=== PATIENT | female | born 1995 | race Caucasian/White ===

== ENCOUNTER 2019-11-28 11:58 | Inpatient (IN) | payer OTHER ==
--- NOTE | 2019-11-28 12:11 | EDM.PDOC ---
ED HPI GENERAL MEDICAL PROBLEM - General Chief Complaint: Fever Stated Complaint: BROUGHT DIRECTLY FROM THE CLINIC Time Seen by Provider: 11/28/19 12:10 Source of Information: Reports: [employer] - History of Present Illness INITIAL COMMENTS - FREE TEXT/NARRATIVE: Patient awake but confused, and unable to provide any history. Patient was brought to the emergency department in a wheelchair accompanied by the adapted physical education specialist. Deicer Tester states that patient's told her earlier today that the patient had been complaining of a headache off and on for about a week. She has had a fever for about 3 days. It is unknown whether the patient got Tylenol or Motrin at home. Patient attempted to go to the clinic today, but was not verbally responsive, so the clinic sent her here. Joya Garrison, adapted physical education specialist, assisted with obtaining history from the patient' s . He says that she has had a headache recently. She is also complaining of pain in her back and legs. No recent antibiotics. No other hx available. Generalized Pain Score (Numeric/FACES): 8 - Related Data Allergies Allergy/AdvReac Type Severity Reaction Status Date / Time No Known Allergies Allergy Verified 07/11/16 12:08 Home Meds: Home Meds . [No Known Home Meds] 08/18/16 [History] Past Medical History - Past Health History Medical/Surgical History: Denies Medical/Surgical History HEENT History: Reports: None Cardiovascular History: Reports: None Respiratory History: Reports: Asthma Gastrointestinal History: Reports: None Genitourinary History: Reports: None DENTAL DIRECTOR History: Reports: None Musculoskeletal History: Reports: None Neurological History: Reports: None Psychiatric History: Reports: None Endocrine/Metabolic History: Reports: None Hematologic History: Reports: None Immunologic History: Reports: None Oncologic (Cancer) History: Reports: None Dermatologic History: Reports: None - Infectious Disease History Infectious Disease History: Reports: Chicken Pox - Past Surgical History Head Surgeries/Procedures: Reports: None HEENT Surgical History: Reports: None Cardiovascular Surgical History: Reports: None Respiratory Surgical History: Reports: None GI Surgical History: Reports: None Female Surgical History: Reports: None Dermatological Surgical History: Reports: None Social & Family History - Family History Family Medical History: Unobtainable - Tobacco Use Smoking Status *Q: Never Smoker - Caffeine Use Caffeine Use: Reports: None - Recreational Drug Use Recreational Drug Use: No ED ROS GENERAL - Review of Systems Review Of Systems: Unable To Obtain Reason Not Obtained: Due to mental status, patient cannot provide review of systems. ED EXAM, SEPSIS - Physical Exam Exam: See Below Text/Narrative:: General: tired appearing, mumbles a few words here and there, not very interactive, nondiaphoretic HEENT: Atraumatic, normocephalic, PERRL 2 mm bilat sluggish. negative for conjunctival pallor or scleral icterus, mucous membranes dry, handling oral secretions well. Neck: supple, no meningismus. FROM. Lungs: Clear to auscultation, breath sounds equal bilaterally, chest nontender. Heart: S1S2, regular, negative for clicks, rubs, or JVD. Abdomen: Soft, nondistended, nontender. Negative for masses or hepatosplenomegaly. Negative for costovertebral tenderness. Pelvis: Stable nontender. Skin: warm, dry. Lacy reticular rash on face, back, trunk. No petechiae. Musculoskeletal: soft compartments. Extremities: Atraumatic, negative for cords or calf pain. Neurovascular unremarkable. Neuro: awake, mumbles at times, localizes pain, eyes open spontaneously. Not following commands. Good muscle tone. Cranial nerves II through XII unremarkable. Moves each extremity. Exam Limited By: Altered Mental Status General Appearance: Other (Lethargic, not verbally responsive, stairs. Attempts to speak at times, but very few words come out.) Course - Vital Signs Text/Narrative:: After pt examined initially, there was some concern about her altered mental status. LP considered. Benefits and risks of the lumbar puncture discussed via the adapted physical education specialist. Patient's was given an opportunity to ask all questions. After benefits and risks were explained, he did agree to consent to the procedure. Initial plan: labs and a head CT; if there is no concerning finding on the head CT, will seriously consider a lumbar puncture. NKDA, per of pt. 1:20pm Due to simultaneous presence of a STEMI pt who coded three times, I could not do the LP prior to giving abxs. Abxs ( 20 mg/kg of vanc to toal 1500 mg vanc and 2 grams Rocephin ) ordered to cover presumptive sepsis and meningitis. Also, pt hasnt gotten her head CT yet. 1:53pm Pt has now gone for head CT. 2:33pm Pt more awake and alert. Oriented x 3. Says has pain in back, head. Supple neck. Says she does not want the LP; not quite able to explain why, only says she does not want it. Pt is more alert compared to initial presentation, but I am concerned that she speaks barely above a whisper and does not look well. Have requested page of the hospitalist. 2:47pm d/w medicine resident, who accepts case for Dr. Cotto (attending). Pt s at bedside. Via buckle strap drum operator, informed of admission; he and pt are in agreement with admission. Subsequent to return from head CT, pt noted to be more interactive. However, mentation still seemed to be a bit slow. Pt declined LP. Pt + for influenza. Due to mentation not being quite normal, decision made to admit to obs. Case d/ w hospitalist [facility] [place], [place], who accepted pt. Last Recorded V/S: Last Vital Signs Temp 97.7 F 11/28/19 19:32 Pulse 86 11/28/19 19:32 Resp 16 11/28/19 19:32 BP 115/61 11/28/19 19:32 Pulse Ox 96 11/28/19 19:32 - Orders/Labs/Meds Orders: Active Orders 24 hr Category Date Time Status CULTURE BLOOD [BC] Stat Lab 11/28/19 12:00 Received CULTURE BLOOD [BC] Stat Lab 11/28/19 12:20 Received CULTURE URINE [] Stat Lab 11/28/19 13:51 Received Sodium Chloride 0.9% [Saline Flush] Med 11/28/19 12:14 Active 10 ml FLUSH ASDIRECTED PRN Sodium Chloride 0.9% [Saline Flush] Med 11/28/19 12:14 Active 2.5 ml FLUSH ASDIRECTED PRN Blood Culture x2 Reflex Set [OM.PC] Stat Oth 11/28/19 12:14 Ordered Saline Lock Insert [OM.PC] Stat Oth 11/28/19 12:14 Ordered Severe Sepsis Onset Time [OM.PC] Stat Oth 11/28/19 12:14 Ordered Medication Orders Acetaminophen (Tylenol) 650 mg PO Q4H PRN PRN Reason: Pain (Mild 1-3)/fever Albuterol (Proventil Neb Soln) 2.5 mg NEB Q2H PRN PRN Reason: Shortness Of Breath/wheezing Benzocaine/Menthol (Cepacol Sore Throat) 1 lozenge MUCMEM Q2H PRN PRN Reason: Sore Throat Diphenhydramine HCl (Benadryl) 25 mg IVPUSH Q6H PRN PRN Reason: Itching Sodium Chloride (Normal Saline) 1,000 mls @ 150 mls/hr IV Q6H [facility] Last Admin: 11/28/19 16:27 Dose: 150 mls/hr Azithromycin 500 mg/ Sodium (Chloride) 250 mls @ 250 mls/hr IV DAILY [facility] Last Admin: 11/28/19 16:37 Dose: 250 mls/hr Ceftriaxone Sodium/Dextrose 1 (gm/ Premix) 50 mls @ 100 mls/hr IV Q24H [facility] Ibuprofen (Motrin) 400 mg PO Q6H PRN PRN Reason: Pain (mild 1-3) Morphine Sulfate (Morphine) 2 mg IVPUSH Q2H PRN PRN Reason: Pain (severe 7-10) Stop: 11/29/19 15:40 Last Admin: 11/28/19 17:03 Dose: 2 mg Ondansetron HCl (Zofran) 4 mg IVPUSH Q4H PRN PRN Reason: Nausea Last Admin: 11/28/19 17:05 Dose: 4 mg Oseltamivir Phosphate (Tamiflu) 75 mg PO BID [facility] Last Admin: 11/28/19 21:05 Dose: 75 mg Sodium Chloride (Saline Flush) 10 ml FLUSH ASDIRECTED PRN PRN Reason: Keep Vein Open Last Admin: 11/28/19 12:28 Dose: 10 ml Sodium Chloride (Saline Flush) 2.5 ml FLUSH ASDIRECTED PRN PRN Reason: Keep Vein Open Last Admin: 11/28/19 12:28 Dose: 2.5 ml Labs: Laboratory Tests 11/28/19 11/28/19 11/28/19 Range/Units 12:00 12:00 12:00 WBC 5.00 (4.0-11.0) K/uL RBC 4.51 (4.30-5.90) M/uL Hgb 13.7 (12.0-16.0) g/dL Hct 41.1 (36.0-46.0) % MCV 91.1 (80.0-98.0) fL MCH 30.4 (27.0-32.0) pg MCHC 33.3 (31.0-37.0) g/dL RDW Std Deviation 43.3 (28.0-62.0) fl RDW Coeff of Heather 13 (11.0-15.0) % Plt Count 192 (150-400) K/uL MPV 9.90 (7.40-12.00) fL Add Manual Diff YES Neutrophils % (Manual) 55 (48.0-80.0) % Band Neutrophils % 2 % Lymphocytes % (Manual) 27 (16.0-40.0) % Monocytes % (Manual) 16 H (0.0-15.0) % Nucleated RBC % 0.0 /100WBC Absolute Seg Neuts 2.8 (1.4-5.7) Band Neutrophils # 0.1 Lymphocytes # (Manual) 1.4 (0.6-2.4) Monocytes # (Manual) 0.8 (0.0-0.8) Nucleated RBCs # 0 K/uL INR 1.03 ABG pH (7.35-7.45) ABG pCO2 (35-45) mmHG ABG pO2 (75-100) mmHG ABG HCO3 (22-26) mEq/L ABG Total CO2 ABG Base Excess (-2.0-2.0) Lactate 0.8 (0.20-2.00) mmol/L Sodium (136-145) mmol/L Potassium (3.5-5.1) mmol/L Chloride (98-107) mmol/L Carbon Dioxide (21.0-32.0) mmol/L BUN (7.0-18.0) mg/dL Creatinine (0.6-1.0) mg/dL Est Cr Clr Drug Dosing mL/min Estimated GFR (MDRD) ml/min Glucose (74-106) mg/dL Calcium (8.5-10.1) mg/dL Total Bilirubin (0.2-1.0) mg/dL AST (15-37) IU/L ALT (14-63) IU/L Alkaline Phosphatase (46-116) U/L Creatine Kinase (26-308) U/L C-Reactive Protein (0.00-0.90) mg/dL Total Protein (6.4-8.2) g/dL Albumin (3.4-5.0) g/dL Globulin (2.6-4.0) g/dL Albumin/Globulin Ratio (0.9-1.6) Lipase (73-393) U/L Urine Color Urine Appearance Urine pH (5.0-8.0) Ur Specific Carpio (1.001-1.035) Urine Protein (NEGATIVE) mg/dL Urine Glucose (UA) (NEGATIVE) mg/dL Urine Ketones (NEGATIVE) mg/dL Urine Occult Blood (NEGATIVE) Urine Nitrite (NEGATIVE) Urine Bilirubin (NEGATIVE) Urine Urobilinogen (<2.0) EU/dL Ur Leukocyte Esterase (NEGATIVE) Urine RBC (0-2/HPF) Urine WBC (0-5/HPF) Ur Epithelial Cells (NONE-FEW) Urine Bacteria (NEGATIVE) Urine HCG, Qual (NEGATIVE) Urine Opiates Screen (NEGATIVE) Ur Oxycodone Screen (NEGATIVE) Urine Methadone Screen (NEGATIVE) Ur Barbiturates Screen (NEGATIVE) Ur Phencyclidine Scrn (NEGATIVE) Ur Amphetamine Screen (NEGATIVE) U Methamphetamines Scrn (NEGATIVE) U Benzodiazepines Scrn (NEGATIVE) U Cocaine Metab Screen (NEGATIVE) U Marijuana (THC) Screen (NEGATIVE) 11/28/19 11/28/19 11/28/19 Range/Units 12:00 12:00 12:32 WBC (4.0-11.0) K/uL RBC (4.30-5.90) M/uL Hgb (12.0-16.0) g/dL Hct (36.0-46.0) % MCV (80.0-98.0) fL MCH (27.0-32.0) pg MCHC (31.0-37.0) g/dL RDW Std Deviation (28.0-62.0) fl RDW Coeff of Heather (11.0-15.0) % Plt Count (150-400) K/uL MPV (7.40-12.00) fL Add Manual Diff Neutrophils % (Manual) (48.0-80.0) % Band Neutrophils % % Lymphocytes % (Manual) (16.0-40.0) % Monocytes % (Manual) (0.0-15.0) % Nucleated RBC % /100WBC Absolute Seg Neuts (1.4-5.7) Band Neutrophils # Lymphocytes # (Manual) (0.6-2.4) Monocytes # (Manual) (0.0-0.8) Nucleated RBCs # K/uL INR ABG pH 7.404 (7.35-7.45) ABG pCO2 38 (35-45) mmHG ABG pO2 67 L (75-100) mmHG ABG HCO3 23 (22-26) mEq/L ABG Total CO2 21.2 ABG Base Excess -1.1 (-2.0-2.0) Lactate (0.20-2.00) mmol/L Sodium 140 (136-145) mmol/L Potassium 3.9 (3.5-5.1) mmol/L Chloride 104 (98-107) mmol/L Carbon Dioxide 26.2 (21.0-32.0) mmol/L BUN 7 (7.0-18.0) mg/dL Creatinine 0.6 (0.6-1.0) mg/dL Est Cr Clr Drug Dosing 128.98 mL/min Estimated GFR (MDRD) > 60.0 ml/min Glucose 100 (74-106) mg/dL Calcium 9.2 (8.5-10.1) mg/dL Total Bilirubin 0.2 (0.2-1.0) mg/dL AST 19 (15-37) IU/L ALT 22 (14-63) IU/L Alkaline Phosphatase 62 (46-116) U/L Creatine Kinase 68 (26-308) U/L C-Reactive Protein 0.70 (0.00-0.90) mg/dL Total Protein 8.3 H (6.4-8.2) g/dL Albumin 4.3 (3.4-5.0) g/dL Globulin 4.0 (2.6-4.0) g/dL Albumin/Globulin Ratio 1.1 (0.9-1.6) Lipase 95 (73-393) U/L Urine Color Urine Appearance Urine pH (5.0-8.0) Ur Specific Carpio (1.001-1.035) Urine Protein (NEGATIVE) mg/dL Urine Glucose (UA) (NEGATIVE) mg/dL Urine Ketones (NEGATIVE) mg/dL Urine Occult Blood (NEGATIVE) Urine Nitrite (NEGATIVE) Urine Bilirubin (NEGATIVE) Urine Urobilinogen (<2.0) EU/dL Ur Leukocyte Esterase (NEGATIVE) Urine RBC (0-2/HPF) Urine WBC (0-5/HPF) Ur Epithelial Cells (NONE-FEW) Urine Bacteria (NEGATIVE) Urine HCG, Qual (NEGATIVE) Urine Opiates Screen (NEGATIVE) Ur Oxycodone Screen (NEGATIVE) Urine Methadone Screen (NEGATIVE) Ur Barbiturates Screen (NEGATIVE) Ur Phencyclidine Scrn (NEGATIVE) Ur Amphetamine Screen (NEGATIVE) U Methamphetamines Scrn (NEGATIVE) U Benzodiazepines Scrn (NEGATIVE) U Cocaine Metab Screen (NEGATIVE) U Marijuana (THC) Screen (NEGATIVE) 11/28/19 11/28/19 11/28/19 Range/Units 13:51 13:51 13:51 WBC (4.0-11.0) K/uL RBC (4.30-5.90) M/uL Hgb (12.0-16.0) g/dL Hct (36.0-46.0) % MCV (80.0-98.0) fL MCH (27.0-32.0) pg MCHC (31.0-37.0) g/dL RDW Std Deviation (28.0-62.0) fl RDW Coeff of Heather (11.0-15.0) % Plt Count (150-400) K/uL MPV (7.40-12.00) fL Add Manual Diff Neutrophils % (Manual) (48.0-80.0) % Band Neutrophils % % Lymphocytes % (Manual) (16.0-40.0) % Monocytes % (Manual) (0.0-15.0) % Nucleated RBC % /100WBC Absolute Seg Neuts (1.4-5.7) Band Neutrophils # Lymphocytes # (Manual) (0.6-2.4) Monocytes # (Manual) (0.0-0.8) Nucleated RBCs # K/uL INR ABG pH (7.35-7.45) ABG pCO2 (35-45) mmHG ABG pO2 (75-100) mmHG ABG HCO3 (22-26) mEq/L ABG Total CO2 ABG Base Excess (-2.0-2.0) Lactate (0.20-2.00) mmol/L Sodium (136-145) mmol/L Potassium (3.5-5.1) mmol/L Chloride (98-107) mmol/L Carbon Dioxide (21.0-32.0) mmol/L BUN (7.0-18.0) mg/dL Creatinine (0.6-1.0) mg/dL Est Cr Clr Drug Dosing mL/min Estimated GFR (MDRD) ml/min Glucose (74-106) mg/dL Calcium (8.5-10.1) mg/dL Total Bilirubin (0.2-1.0) mg/dL AST (15-37) IU/L ALT (14-63) IU/L Alkaline Phosphatase (46-116) U/L Creatine Kinase (26-308) U/L C-Reactive Protein (0.00-0.90) mg/dL Total Protein (6.4-8.2) g/dL Albumin (3.4-5.0) g/dL Globulin (2.6-4.0) g/dL Albumin/Globulin Ratio (0.9-1.6) Lipase (73-393) U/L Urine Color YELLOW Urine Appearance CLEAR Urine pH 7.0 (5.0-8.0) Ur Specific Carpio 1.020 (1.001-1.035) Urine Protein NEGATIVE (NEGATIVE) mg/dL Urine Glucose (UA) NEGATIVE (NEGATIVE) mg/dL Urine Ketones NEGATIVE (NEGATIVE) mg/dL Urine Occult Blood MODERATE H (NEGATIVE) Urine Nitrite NEGATIVE (NEGATIVE) Urine Bilirubin NEGATIVE (NEGATIVE) Urine Urobilinogen 0.2 (<2.0) EU/dL Ur Leukocyte Esterase NEGATIVE (NEGATIVE) Urine RBC 6-8 (0-2/HPF) Urine WBC NONE SEEN (0-5/HPF) Ur Epithelial Cells RARE (NONE-FEW) Urine Bacteria FEW (NEGATIVE) Urine HCG, Qual NEGATIVE (NEGATIVE) Urine Opiates Screen NEGATIVE (NEGATIVE) Ur Oxycodone Screen NEGATIVE (NEGATIVE) Urine Methadone Screen NEGATIVE (NEGATIVE) Ur Barbiturates Screen NEGATIVE (NEGATIVE) Ur Phencyclidine Scrn NEGATIVE (NEGATIVE) Ur Amphetamine Screen NEGATIVE (NEGATIVE) U Methamphetamines Scrn NEGATIVE (NEGATIVE) U Benzodiazepines Scrn NEGATIVE (NEGATIVE) U Cocaine Metab Screen NEGATIVE (NEGATIVE) U Marijuana (THC) Screen NEGATIVE (NEGATIVE) ABG: nl pH; p)c low (67), otherwise unremarkable Crp: nl Cbc: nl INR: nl Cmp: Coags: Lactate: 0.8 (nl) Lipase: 95 (nl) Ua: neg nit, LE, moderate blood Ucg: neg Influenza B: positive Meds: Medications Generic Name Dose Route Start Last Admin Trade Name Antione PRN Reason Stop Dose Admin Acetaminophen 650 mg 11/28/19 15:39 Tylenol PO Q4H PRN Pain (Mild 1-3)/fever Albuterol 2.5 mg 11/28/19 15:39 Proventil Neb Soln NEB Q2H PRN Shortness Of Breath/wheezing Benzocaine/Menthol 1 lozenge 11/28/19 15:39 Cepacol Sore Throat MUCMEM Q2H PRN Sore Throat Diphenhydramine HCl 25 mg 11/28/19 16:14 Benadryl IVPUSH Q6H PRN Itching Sodium Chloride 1,000 mls @ 150 mls/hr 11/28/19 15:45 11/28/19 16:27 Normal Saline IV 150 mls/hr Q6H KELLY Administration Azithromycin 500 mg/ Sodium 250 mls @ 250 mls/hr 11/28/19 16:00 11/28/19 16: 37 Chloride IV 250 mls/hr DAILY KELLY Administration Ceftriaxone Sodium/Dextrose 1 50 mls @ 100 mls/hr 11/29/19 12:00 gm/ Premix IV Q24H KELLY Ibuprofen 400 mg 11/28/19 15:39 Motrin PO Q6H PRN Pain (mild 1-3) Morphine Sulfate 2 mg 11/28/19 15:39 11/28/19 17:03 Morphine IVPUSH 11/29/19 15:40 2 mg Q2H PRN Administration Pain (severe 7-10) Ondansetron HCl 4 mg 11/28/19 15:39 11/28/19 17:05 Zofran IVPUSH 4 mg Q4H PRN Administration Nausea Oseltamivir Phosphate 75 mg 11/28/19 21:00 11/28/19 21:05 Tamiflu PO 75 mg BID KELLY Administration Sodium Chloride 10 ml 11/28/19 12:14 11/28/19 12:28 Saline Flush FLUSH 10 ml ASDIRECTED PRN Administration Keep Vein Open Sodium Chloride 2.5 ml 11/28/19 12:14 11/28/19 12:28 Saline Flush FLUSH 2.5 ml ASDIRECTED PRN Administration Keep Vein Open Discontinued Medications Generic Name Dose Route Start Last Admin Trade Name Benignoq PRN Reason Stop Dose Admin Acetaminophen 975 mg 11/28/19 12:19 11/28/19 12:27 Tylenol 15 mg/kg (975 mg) 11/28/19 12:20 975 mg RECTAL Administration NOW ONE Ceftriaxone Sodium 2 gm 11/28/19 13:30 11/28/19 13:40 Rocephin IVPUSH 11/28/19 13:31 Not Given ONETIME ONE Diphenhydramine HCl 25 mg 11/28/19 16:04 11/28/19 16:28 Benadryl IVPUSH 11/28/19 16:05 25 mg ONETIME ONE Administration Sodium Chloride 1,000 mls @ 999 mls/hr 11/28/19 12:14 11/28/19 12:28 Normal Saline IV 11/28/19 13:14 999 mls/hr STAT ONE Administration Vancomycin HCl 1.5 gm/ Premix 300 mls @ 200 mls/hr 11/28/19 13:34 11/28/19 14 :10 IV 11/28/19 15:03 200 mls/hr ONETIME ONE Administration Ceftriaxone Sodium/Dextrose 2 50 mls @ 100 mls/hr 11/28/19 13:37 11/28/19 14: 10 gm/ Premix IV 11/28/19 14:06 100 mls/hr ONETIME ONE Administration Sodium Chloride 1,000 mls @ 1,000 mls/hr 11/28/19 13:51 11/28/19 14:10 Normal Saline IV 11/28/19 14:50 1,000 mls/hr .Bolus ONE Administration Methylprednisolone Sodium Succinate 125 mg 11/28/19 16:03 11/28/19 16:31 Solu-Medrol IVPUSH 11/28/19 16:04 125 mg ONETIME ONE Administration Oseltamivir Phosphate 75 mg 11/28/19 13:52 11/28/19 14:58 Tamiflu PO 11/28/19 13:53 75 mg ONETIME ONE Administration - Radiology Interpretation Free Text/Narrative:: Portable: X-ray report indicates possible bilateral lower lobe pneumonia Head CT: no bleed, mass, shift. +rt maxillary sinusitis Ek bpm sinus tach nl axis ln pr, qrs, qtc no acute st changes Departure - Departure Time of Disposition: 14:48 Disposition: Admitted As Inpatient 65 Condition: Good Clinical Impression: Influenza A, Influenza - Discharge Information *PRESCRIPTION DRUG MONITORING PROGRAM REVIEWED*: Not Applicable *COPY OF PRESCRIPTION DRUG MONITORING REPORT IN PATIENT TAMAR: Not Applicable Sepsis Event Note - Evaluation Sepsis Screening Result: Possible Severe Sepsis Risk - Focused Exam Vital Signs: Vital Signs Temp Temp Pulse Resp BP Pulse Ox 11/28/19 14:00 97 18 125/66 98 11/28/19 13:00 89 18 132/83 97 11/28/19 12:57 99.4 F 11/28/19 12:27 101 F H 11/28/19 12:02 101 F H 110 H 22 H 123/75 97 Date Exam was Performed: 11/28/19 Time Exam was Performed: 21:25 - My Orders Last 24 Hours: My Active Orders 11/28/19 12:00 CULTURE BLOOD [BC] Stat 11/28/19 12:14 Sodium Chloride 0.9% [Saline Flush] 10 ml FLUSH ASDIRECTED PRN Sodium Chloride 0.9% [Saline Flush] 2.5 ml FLUSH ASDIRECTED PRN Blood Culture x2 Reflex Set [OM.PC] Stat Saline Lock Insert [OM.PC] Stat Severe Sepsis Onset Time [OM.PC] Stat 11/28/19 12:20 CULTURE BLOOD [BC] Stat 11/28/19 13:51 CULTURE URINE [RM] Stat - Assessment/Plan Last 24 Hours: My Active Orders 11/28/19 12:00 CULTURE BLOOD [BC] Stat 11/28/19 12:14 Sodium Chloride 0.9% [Saline Flush] 10 ml FLUSH ASDIRECTED PRN Sodium Chloride 0.9% [Saline Flush] 2.5 ml FLUSH ASDIRECTED PRN Blood Culture x2 Reflex Set [OM.PC] Stat Saline Lock Insert [OM.PC] Stat Severe Sepsis Onset Time [OM.PC] Stat 11/28/19 12:20 CULTURE BLOOD [BC] Stat 11/28/19 13:51 CULTURE URINE [RM] Stat
[2019-11-28] MEDS ORDERED: Sodium Chloride 0.9% 1,000 ML IV ONE ×2 (12:14→13:51)
[2019-11-28] MEDS ORDERED: Sodium Chloride 0.9% 2.5 ML Syringe FLUSH PRN (12:14)
[2019-11-28] MEDS ORDERED: Sodium Chloride 0.9% 10 ML Syringe FLUSH PRN (12:14)
[2019-11-28] MEDS ORDERED: Acetaminophen 650 MG Supp RECTAL ONE (12:19)
[2019-11-28 12:47] LABS: BLOOD UREA NITROGEN,BUN 7 mg/dL (7.0-18.0); CARBON DIOXIDE,CO2 26.2 mmol/L (21.0-32.0); CHLORIDE,CL 104 mmol/L (98-107); GLUCOSE RANDOM 100 mg/dL (74-106); LIPASE 95 U/L (73-393); POTASSIUM,K 3.9 mmol/L (3.5-5.1); SODIUM,NA 140 mmol/L (136-145)
[2019-11-28] MEDS ORDERED: Piperacillin/Tazobactam 3.375 GM in Sodium Chloride 0.9% 50 ML IV ONE (13:26)
[2019-11-28] MEDS ORDERED: cefTRIAXone 1 GM Vial IVPUSH ONE (13:30)
[2019-11-28] MEDS ORDERED: cefTRIAXone 2 GM in Premix Bag 1 BAG IV ONE (13:37)
[2019-11-28] MEDS ORDERED: Oseltamivir 75 MG Cap PO ONE (13:52)
--- NOTE | 2019-11-28 14:18 | CT ---
INDICATION: Lethargy. Altered mental status. Pain. Body aches and fever. TECHNIQUE: CT head without contrast. COMPARISON: None. FINDINGS: CSF spaces: Within normal limits for age. Brain parenchyma and extra-axial spaces: The peterson-white differentiation is normal. No sign of mass, hemorrhage, or midline shift. No extra-axial fluid collection. Skull base and calvarium: Debris and mucosal thickening present in the right maxillary sinus. Remainder of the paranasal sinuses and mastoid air cells are clear. The visualized orbits are grossly unremarkable. No skull fractures. IMPRESSION: Right maxillary sinusitis. No intracranial abnormality. Please note that all CT scans at this facility use dose modulation, iterative reconstruction, and/or weight-based dosing when appropriate to reduce radiation dose to as low as reasonably achievable. Dictated by Austin Alonzo MD @ Nov 28 2019 2:12PM Signed by Dr. Austin Alonzo @ Nov 28 2019 2:16PM
--- NOTE | 2019-11-28 14:26 | CR ---
INDICATION: Fever TECHNIQUE: Chest 1 view COMPARISON: None FINDINGS: Cardiovascular and mediastinum: Heart size and vasculature are normal in caliber and appearance. Lungs and pleural spaces: Subtle ill-defined infiltrates are suspected in the lower lobes. Upper lungs are clear. Pleural spaces are clear. Bones and soft tissues: No significant findings. IMPRESSION: Findings suspicious for bilateral lower lobe pneumonia. Dictated by Austin Alonzo MD @ Nov 28 2019 2:24PM Signed by Dr. Austin Alonzo @ Nov 28 2019 2:25PM
[2019-11-28] MEDS ORDERED: Morphine 10 MG/ML Syringe IVPUSH PRN (15:39)
[2019-11-28] MEDS ORDERED: Acetaminophen 325 MG Tab PO PRN (15:39)
[2019-11-28] MEDS ORDERED: Ibuprofen 400 MG Tab PO PRN (15:39)
[2019-11-28] MEDS ORDERED: Ondansetron 4 MG/2 ML SDV IVPUSH PRN (15:39)
[2019-11-28] MEDS ORDERED: Albuterol 0.083% 2.5 MG/3 ML Neb Soln NEB PRN (15:39)
--- NOTE | 2019-11-28 15:45 | PCM.HP.2 ---
<Danielle Harper M - Last Filed: 11/28/19 16:14> H&P History of Present Illness - General Date of Service: 11/28/19 Admit Problem/Dx: Admission Diagnosis/Problem Admission Diagnosis/Problem Influenza due to Influenza B virus Source of Information: Patient History Limitations: Reports: No Limitations - History of Present Illness Initial Comments - Free Text/Narative: This 24 year old female with pmh of asthma presented to the clinic initial with complaints of feeling ill and family noticed lethargy. She was noted in the clinic to being very lethargic and brought over to the ED quickly. Fmaily reports she has been ill for 2 days and progressively worsened. She is not eating or drinking much, has a productive cough, dyspnea, sore throat and sinus congestion. She reports all over generalized malaise, fevers, chills and headache. She denies nausea or vomiting, no diarrhea or constipation and no troubles urinating, no dysuria. She denies influenza vaccine this year. Only medical history is asthma, in which she uses a rescue inhaler for. She denies tobacco use, no alcohol use and no recreational drug use. In the ED labwork essentially WNL. Influenza swab returns positive for Influenza B and CXR revealed bilateral lower lobe pneumonia. ED physician recommended LP, but patient declined. I also asked regarding further diagnosis due to fevers, headache and neck pain. She and family were counseled on risks and she continued to decline. Head CT negative. UA negative. UDS negative. HCG negative. She was given Vancomycin and Rocephin 2 gm in the ED. She will be admitted inpatient for Influenza and CAP. Becky is rwand[place] speaking only. Cloth Mercerizer Operator assisted in interview. at bedside as well, who is also only [place] speaking. - Related Data Allergies/Adverse Reactions: Allergies Allergy/AdvReac Type Severity Reaction Status Date / Time No Known Allergies Allergy Verified 07/11/16 12:08 Home Medications: Home Meds . [No Known Home Meds] 08/18/16 [History] Past Medical History - Past Health History Medical/Surgical History: Denies Medical/Surgical History HEENT History: Reports: None Cardiovascular History: Reports: None Respiratory History: Reports: Asthma Gastrointestinal History: Reports: None Genitourinary History: Reports: None SHELVER History: Reports: None Musculoskeletal History: Reports: None Neurological History: Reports: None Psychiatric History: Reports: None Endocrine/Metabolic History: Reports: None Hematologic History: Reports: None Immunologic History: Reports: None Oncologic (Cancer) History: Reports: None Dermatologic History: Reports: None - Infectious Disease History Infectious Disease History: Reports: Chicken Pox - Past Surgical History Head Surgeries/Procedures: Reports: None HEENT Surgical History: Reports: None Cardiovascular Surgical History: Reports: None Respiratory Surgical History: Reports: None GI Surgical History: Reports: None Female Surgical History: Reports: None Dermatological Surgical History: Reports: None Social & Family History - Family History Family Medical History: Unobtainable - Tobacco Use Smoking Status *Q: Never Smoker - Caffeine Use Caffeine Use: Reports: None - Alcohol Use Alcohol Use History: No - Recreational Drug Use Recreational Drug Use: No - Living Situation & Occupation Living situation: Reports: , with Family H&P Review of Systems - Review of Systems: Review Of Systems: See Below General: Reports: Fever, Chills, Malaise, Weakness HEENT: Reports: Headaches, Sinus Congestion, Sore Throat Pulmonary: Reports: Shortness of Breath, Cough, Sputum Cardiovascular: Reports: Lightheadedness. Denies: Chest Pain Musculoskeletal: Reports: Neck Pain, Muscle Pain (all over pain) Skin: Reports: No Symptoms Psychiatric: Reports: No Symptoms Neurological: Reports: No Symptoms Hematologic/Lymphatic: Reports: No Symptoms Immunologic: Reports: No Symptoms Exam - Exam Exam: See Below - Vital Signs Vital Signs: Last Vital Signs Temp 99.4 F 11/28/19 12:57 Pulse 97 11/28/19 14:00 Resp 18 11/28/19 14:00 BP 125/66 11/28/19 14:00 Pulse Ox 98 11/28/19 14:00 Weight: 58.967 kg - Exam General: Alert, Oriented, Cooperative, Other (ill appearing, answers questions, but is whispering, very slow in movements. ) HEENT: Conjunctiva Clear, Pupils Equal, Pupils Reactive, Other (sinus congestion noted). No: Mucosa Moist & [place] (dry) Neck: Supple, Trachea Midline, Full Range of Motion (no nuchal rigidity noted) Lungs: Normal Respiratory Effort, Decreased Breath Sounds (bibasilar) Cardiovascular: Regular Rate, Regular Rhythm, Normal S1, Normal S2 GI/Abdominal Exam: Normal Bowel Sounds, Soft, Non-Tender Extremities: Normal Inspection, Normal Range of Motion, Non-Tender, No Pedal Edema Neuro Extensive - Mental Status: Alert, Oriented x3 Neuro Extensive - Motor, Sensory, Reflexes: CN II-XII Intact Psychiatric: Alert, Normal Affect, Normal Mood - Patient Data Lab Results Last 24 hrs: Laboratory Results - last 24 hr 11/28/19 11/28/19 11/28/19 Range/Units 12:00 12:00 12:00 WBC 5.00 (4.0-11.0) K/uL RBC 4.51 (4.30-5.90) M/uL Hgb 13.7 (12.0-16.0) g/dL Hct 41.1 (36.0-46.0) % MCV 91.1 (80.0-98.0) fL MCH 30.4 (27.0-32.0) pg MCHC 33.3 (31.0-37.0) g/dL RDW Std Deviation 43.3 (28.0-62.0) fl RDW Coeff of Heather 13 (11.0-15.0) % Plt Count 192 (150-400) K/uL MPV 9.90 (7.40-12.00) fL Add Manual Diff YES Neutrophils % (Manual) 55 (48.0-80.0) % Band Neutrophils % 2 % Lymphocytes % (Manual) 27 (16.0-40.0) % Monocytes % (Manual) 16 H (0.0-15.0) % Nucleated RBC % 0.0 /100WBC Absolute Seg Neuts 2.8 (1.4-5.7) Band Neutrophils # 0.1 Lymphocytes # (Manual) 1.4 (0.6-2.4) Monocytes # (Manual) 0.8 (0.0-0.8) Nucleated RBCs # 0 K/uL INR 1.03 ABG pH (7.35-7.45) ABG pCO2 (35-45) mmHG ABG pO2 (75-100) mmHG ABG HCO3 (22-26) mEq/L ABG Total CO2 ABG Base Excess (-2.0-2.0) Lactate 0.8 (0.20-2.00) mmol/L Sodium (136-145) mmol/L Potassium (3.5-5.1) mmol/L Chloride (98-107) mmol/L Carbon Dioxide (21.0-32.0) mmol/L BUN (7.0-18.0) mg/dL Creatinine (0.6-1.0) mg/dL Est Cr Clr Drug Dosing mL/min Estimated GFR (MDRD) ml/min Glucose (74-106) mg/dL Calcium (8.5-10.1) mg/dL Total Bilirubin (0.2-1.0) mg/dL AST (15-37) IU/L ALT (14-63) IU/L Alkaline Phosphatase (46-116) U/L C-Reactive Protein (0.00-0.90) mg/dL Total Protein (6.4-8.2) g/dL Albumin (3.4-5.0) g/dL Globulin (2.6-4.0) g/dL Albumin/Globulin Ratio (0.9-1.6) Lipase (73-393) U/L Urine Color Urine Appearance Urine pH (5.0-8.0) Ur Specific [place] (1.001-1.035) Urine Protein (NEGATIVE) mg/dL Urine Glucose (UA) (NEGATIVE) mg/dL Urine Ketones (NEGATIVE) mg/dL Urine Occult Blood (NEGATIVE) Urine Nitrite (NEGATIVE) Urine Bilirubin (NEGATIVE) Urine Urobilinogen (<2.0) EU/dL Ur Leukocyte Esterase (NEGATIVE) Urine RBC (0-2/HPF) Urine WBC (0-5/HPF) Ur Epithelial Cells (NONE-FEW) Urine Bacteria (NEGATIVE) Urine HCG, Qual (NEGATIVE) Urine Opiates Screen (NEGATIVE) Ur Oxycodone Screen (NEGATIVE) Urine Methadone Screen (NEGATIVE) Ur Barbiturates Screen (NEGATIVE) Ur Phencyclidine Scrn (NEGATIVE) Ur Amphetamine Screen (NEGATIVE) U Methamphetamines Scrn (NEGATIVE) U Benzodiazepines Scrn (NEGATIVE) U Cocaine Metab Screen (NEGATIVE) U Marijuana (THC) Screen (NEGATIVE) 11/28/19 11/28/19 11/28/19 Range/Units 12:00 12:32 13:51 WBC (4.0-11.0) K/uL RBC (4.30-5.90) M/uL Hgb (12.0-16.0) g/dL Hct (36.0-46.0) % MCV (80.0-98.0) fL MCH (27.0-32.0) pg MCHC (31.0-37.0) g/dL RDW Std Deviation (28.0-62.0) fl RDW Coeff of Heather (11.0-15.0) % Plt Count (150-400) K/uL MPV (7.40-12.00) fL Add Manual Diff Neutrophils % (Manual) (48.0-80.0) % Band Neutrophils % % Lymphocytes % (Manual) (16.0-40.0) % Monocytes % (Manual) (0.0-15.0) % Nucleated RBC % /100WBC Absolute Seg Neuts (1.4-5.7) Band Neutrophils # Lymphocytes # (Manual) (0.6-2.4) Monocytes # (Manual) (0.0-0.8) Nucleated RBCs # K/uL INR ABG pH 7.404 (7.35-7.45) ABG pCO2 38 (35-45) mmHG ABG pO2 67 L (75-100) mmHG ABG HCO3 23 (22-26) mEq/L ABG Total CO2 21.2 ABG Base Excess -1.1 (-2.0-2.0) Lactate (0.20-2.00) mmol/L Sodium 140 (136-145) mmol/L Potassium 3.9 (3.5-5.1) mmol/L Chloride 104 (98-107) mmol/L Carbon Dioxide 26.2 (21.0-32.0) mmol/L BUN 7 (7.0-18.0) mg/dL Creatinine 0.6 (0.6-1.0) mg/dL Est Cr Clr Drug Dosing 128.98 mL/min Estimated GFR (MDRD) > 60.0 ml/min Glucose 100 (74-106) mg/dL Calcium 9.2 (8.5-10.1) mg/dL Total Bilirubin 0.2 (0.2-1.0) mg/dL AST 19 (15-37) IU/L ALT 22 (14-63) IU/L Alkaline Phosphatase 62 (46-116) U/L C-Reactive Protein 0.70 (0.00-0.90) mg/dL Total Protein 8.3 H (6.4-8.2) g/dL Albumin 4.3 (3.4-5.0) g/dL Globulin 4.0 (2.6-4.0) g/dL Albumin/Globulin Ratio 1.1 (0.9-1.6) Lipase 95 (73-393) U/L Urine Color YELLOW Urine Appearance CLEAR Urine pH 7.0 (5.0-8.0) Ur Specific [place] 1.020 (1.001-1.035) Urine Protein NEGATIVE (NEGATIVE) mg/dL Urine Glucose (UA) NEGATIVE (NEGATIVE) mg/dL Urine Ketones NEGATIVE (NEGATIVE) mg/dL Urine Occult Blood MODERATE H (NEGATIVE) Urine Nitrite NEGATIVE (NEGATIVE) Urine Bilirubin NEGATIVE (NEGATIVE) Urine Urobilinogen 0.2 (<2.0) EU/dL Ur Leukocyte Esterase NEGATIVE (NEGATIVE) Urine RBC 6-8 (0-2/HPF) Urine WBC NONE SEEN (0-5/HPF) Ur Epithelial Cells RARE (NONE-FEW) Urine Bacteria FEW (NEGATIVE) Urine HCG, Qual (NEGATIVE) Urine Opiates Screen (NEGATIVE) Ur Oxycodone Screen (NEGATIVE) Urine Methadone Screen (NEGATIVE) Ur Barbiturates Screen (NEGATIVE) Ur Phencyclidine Scrn (NEGATIVE) Ur Amphetamine Screen (NEGATIVE) U Methamphetamines Scrn (NEGATIVE) U Benzodiazepines Scrn (NEGATIVE) U Cocaine Metab Screen (NEGATIVE) U Marijuana (THC) Screen (NEGATIVE) 11/28/19 11/28/19 Range/Units 13:51 13:51 WBC (4.0-11.0) K/uL RBC (4.30-5.90) M/uL Hgb (12.0-16.0) g/dL Hct (36.0-46.0) % MCV (80.0-98.0) fL MCH (27.0-32.0) pg MCHC (31.0-37.0) g/dL RDW Std Deviation (28.0-62.0) fl RDW Coeff of Heather (11.0-15.0) % Plt Count (150-400) K/uL MPV (7.40-12.00) fL Add Manual Diff Neutrophils % (Manual) (48.0-80.0) % Band Neutrophils % % Lymphocytes % (Manual) (16.0-40.0) % Monocytes % (Manual) (0.0-15.0) % Nucleated RBC % /100WBC Absolute Seg Neuts (1.4-5.7) Band Neutrophils # Lymphocytes # (Manual) (0.6-2.4) Monocytes # (Manual) (0.0-0.8) Nucleated RBCs # K/uL INR ABG pH (7.35-7.45) ABG pCO2 (35-45) mmHG ABG pO2 (75-100) mmHG ABG HCO3 (22-26) mEq/L ABG Total CO2 ABG Base Excess (-2.0-2.0) Lactate (0.20-2.00) mmol/L Sodium (136-145) mmol/L Potassium (3.5-5.1) mmol/L Chloride (98-107) mmol/L Carbon Dioxide (21.0-32.0) mmol/L BUN (7.0-18.0) mg/dL Creatinine (0.6-1.0) mg/dL Est Cr Clr Drug Dosing mL/min Estimated GFR (MDRD) ml/min Glucose (74-106) mg/dL Calcium (8.5-10.1) mg/dL Total Bilirubin (0.2-1.0) mg/dL AST (15-37) IU/L ALT (14-63) IU/L Alkaline Phosphatase (46-116) U/L C-Reactive Protein (0.00-0.90) mg/dL Total Protein (6.4-8.2) g/dL Albumin (3.4-5.0) g/dL Globulin (2.6-4.0) g/dL Albumin/Globulin Ratio (0.9-1.6) Lipase (73-393) U/L Urine Color Urine Appearance Urine pH (5.0-8.0) Ur Specific [place] (1.001-1.035) Urine Protein (NEGATIVE) mg/dL Urine Glucose (UA) (NEGATIVE) mg/dL Urine Ketones (NEGATIVE) mg/dL Urine Occult Blood (NEGATIVE) Urine Nitrite (NEGATIVE) Urine Bilirubin (NEGATIVE) Urine Urobilinogen (<2.0) EU/dL Ur Leukocyte Esterase (NEGATIVE) Urine RBC (0-2/HPF) Urine WBC (0-5/HPF) Ur Epithelial Cells (NONE-FEW) Urine Bacteria (NEGATIVE) Urine HCG, Qual NEGATIVE (NEGATIVE) Urine Opiates Screen NEGATIVE (NEGATIVE) Ur Oxycodone Screen NEGATIVE (NEGATIVE) Urine Methadone Screen NEGATIVE (NEGATIVE) Ur Barbiturates Screen NEGATIVE (NEGATIVE) Ur Phencyclidine Scrn NEGATIVE (NEGATIVE) Ur Amphetamine Screen NEGATIVE (NEGATIVE) U Methamphetamines Scrn NEGATIVE (NEGATIVE) U Benzodiazepines Scrn NEGATIVE (NEGATIVE) U Cocaine Metab Screen NEGATIVE (NEGATIVE) U Marijuana (THC) Screen NEGATIVE (NEGATIVE) Result Diagrams: 11/28/19 12:00 11/28/19 12:00 Chris Results Last 24 hrs: Microbiology 11/28/19 12:00 Influenza Type A Antigen Screen - Final Nasopharyngeal Swab NEGATIVE INFLUENZA A VIRUS AG REFERENCE RANGE: NEGATIVE Influenza Type B Antigen Screen - Final Positive Influenza B Ag Sepsis Event Note - Evaluation Sepsis Screening Result: Possible Severe Sepsis Risk - Focused Exam Vital Signs: Vital Signs Temp Temp Pulse Resp BP Pulse Ox 11/28/19 14:00 97 18 125/66 98 11/28/19 13:00 89 18 132/83 97 11/28/19 12:57 99.4 F 11/28/19 12:27 101 F H 11/28/19 12:02 101 F H 110 H 22 H 123/75 97 Date Exam was Performed: 11/28/19 Time Exam was Performed: 16:14 - Problem List (1) Influenza B SNOMED Code(s): 75976165 ICD Code: J10.1 - FLU DUE TO OTH IDENT INFLUENZA VIRUS W OTH RESP MANIFEST Status: Acute Current Visit: Yes (2) CAP (community acquired pneumonia) SNOMED Code(s): 783907767 ICD Code: J18.9 - PNEUMONIA, UNSPECIFIED ORGANISM Status: Acute Current Visit: Yes Qualifiers: Laterality: unspecified laterality Qualified Code(s): J18.9 - Pneumonia, unspecified organism (3) History of asthma SNOMED Code(s): 045213284 ICD Code: Z87.09 - PERSONAL HISTORY OF OTHER DISEASES OF THE RESPIRATORY SYSTEM Status: Chronic Current Visit: Yes Problem List Initiated/Reviewed/Updated: Yes Orders Last 24hrs: Active Orders 24 hr Category Date Time Status Admission Status [Patient Status] [ADT] Stat ADT 11/28/19 14:52 Active Antiembolic Devices [RC] PER UNIT ROUTINE Care 11/28/19 15:40 Active Intake and Output [RC] QSHIFT Care 11/28/19 15:39 Active Oxygen Therapy [RC] PRN Care 11/28/19 15:39 Active RT Aerosol Therapy [RC] ASDIRECTED Care 11/28/19 15:41 Active Up With Assistance [RC] ASDIRECTED Care 11/28/19 15:39 Active VTE/DVT Education [RC] PER UNIT ROUTINE Care 11/28/19 15:39 Active Vital Signs [RC] Q4H Care 11/28/19 15:39 Active Regular Diet [DIET] Diet 11/28/19 Lunch Active BASIC METABOLIC PANEL,BMP [CHEM] AM Lab 11/29/19 05:11 Ordered CBC WITH AUTO DIFF [HEME] AM Lab 11/29/19 05:11 Ordered CULTURE BLOOD [BC] Stat Lab 11/28/19 12:00 Received CULTURE BLOOD [BC] Stat Lab 11/28/19 12:20 Received CULTURE SPUTUM + SMEAR [RM] Stat Lab 11/28/19 15:39 Ordered CULTURE URINE [RM] Stat Lab 11/28/19 13:51 Received MAGNESIUM [CHEM] AM Lab 11/29/19 05:11 Ordered Acetaminophen [Tylenol] Med 11/28/19 15:39 Active 650 mg PO Q4H PRN Albuterol [Proventil Neb Soln] Med 11/28/19 15:39 Active 2.5 mg NEB Q2H PRN Benzocaine/Cetylpyrd/Menthol [Cepacol Sore Throat] Med 11/28/19 15:39 Active 1 lozenge MUCMEM Q2H PRN Ibuprofen [Motrin] Med 11/28/19 15:39 Active 400 mg PO Q6H PRN Morphine Med 11/28/19 15:39 Active 2 mg IVPUSH Q2H PRN Ondansetron [Zofran] Med 11/28/19 15:39 Active 4 mg IVPUSH Q4H PRN Sodium Chloride 0.9% [Normal Saline] 1,000 ml Med 11/28/19 15:45 Active IV Q6H Sodium Chloride 0.9% [Saline Flush] Med 11/28/19 12:14 Active 10 ml FLUSH ASDIRECTED PRN Sodium Chloride 0.9% [Saline Flush] Med 11/28/19 12:14 Active 2.5 ml FLUSH ASDIRECTED PRN VANCOmycin/Water for INJ (PEG) [VANCOmycin 1.5 GM/300 Med 11/28/19 13:34 Active ML Premix] 1.5 gm Premix Bag 1 bag IV ONETIME cefTRIAXone [Rocephin in Dextrose,Iso-Osm 2 GM/50 ML] 2 Med 11/28/19 13:37 Active gm Premix Bag 1 bag IV ONETIME Blood Culture x2 Reflex Set [OM.PC] Stat Oth 11/28/19 12:14 Ordered Saline Lock Insert [OM.PC] Stat Oth 11/28/19 12:14 Ordered Sequential Compression Device [OM.PC] Per Unit Routine Oth 11/28/19 15:40 Ordered Severe Sepsis Onset Time [OM.PC] Stat Ot 11/28/19 12:14 Ordered Resuscitation Status Routine Resus Stat 11/28/19 15:39 Ordered Medication Orders Acetaminophen (Tylenol) 650 mg PO Q4H PRN PRN Reason: Pain (Mild 1-3)/fever Albuterol (Proventil Neb Soln) 2.5 mg NEB Q2H PRN PRN Reason: Shortness Of Breath/wheezing Benzocaine/Menthol (Cepacol Sore Throat) 1 lozenge MUCMEM Q2H PRN PRN Reason: Sore Throat Sodium Chloride (Normal Saline) 1,000 mls @ 150 mls/hr IV Q6H KELLY Ibuprofen (Motrin) 400 mg PO Q6H PRN PRN Reason: Pain (mild 1-3) Morphine Sulfate (Morphine) 2 mg IVPUSH Q2H PRN PRN Reason: Pain (severe 7-10) Stop: 11/29/19 15:40 Ondansetron HCl (Zofran) 4 mg IVPUSH Q4H PRN PRN Reason: Nausea Sodium Chloride (Saline Flush) 10 ml FLUSH ASDIRECTED PRN PRN Reason: Keep Vein Open Last Admin: 11/28/19 12:28 Dose: 10 ml Sodium Chloride (Saline Flush) 2.5 ml FLUSH ASDIRECTED PRN PRN Reason: Keep Vein Open Last Admin: 11/28/19 12:28 Dose: 2.5 ml Assessment/Plan Comment:: This 24 year old female admitted with Influenza B and bibasilar pneumonia 1. Influenza B: - Tamiflu 75 mg BID - Supportive care with Tylenol, Ibuprofen, Cepacol and IVFs. - CPK 68 - Lactic negative, HR and BP stable. - Repeat labwork in am. 2. CAP: - Continue Rocephin, add Azithromycin - Sputum culture, BC pending - Nebs PRN dyspnea VTE prophylaxis: SCDs and ambulation Code Status: FULL CODE Dispo: 2-3 days pending improvement and culture results. She was brought to the floor and had just finished vancomycin. Patient started complaining of itching and redness. She was not in respiratory distress and was sitting up in bed. She reports it feels like when she was bitten by a wasp and was itchy all over. Likely Redmans from Vancomycin. This medication is not continued. Will give Solu-medrol and Benadryl now. Continuous pulse ox ordered. - Mortality Measure Prognosis:: Good <Dena Can - Last Filed: 11/28/19 21:25> H&P History of Present Illness - General Admit Problem/Dx: Admission Diagnosis/Problem Admission Diagnosis/Problem Influenza due to Influenza A virus Exam - Vital Signs Vital Signs: Last Vital Signs Temp 97.7 F 11/28/19 19:32 Pulse 86 11/28/19 19:32 Resp 16 11/28/19 19:32 BP 115/61 11/28/19 19:32 Pulse Ox 96 11/28/19 19:32 - Patient Data Lab Results Last 24 hrs: Laboratory Results - last 24 hr 11/28/19 11/28/19 11/28/19 Range/Units 12:00 12:00 12:00 WBC 5.00 (4.0-11.0) K/uL RBC 4.51 (4.30-5.90) M/uL Hgb 13.7 (12.0-16.0) g/dL Hct 41.1 (36.0-46.0) % MCV 91.1 (80.0-98.0) fL MCH 30.4 (27.0-32.0) pg MCHC 33.3 (31.0-37.0) g/dL RDW Std Deviation 43.3 (28.0-62.0) fl RDW Coeff of [place] 13 (11.0-15.0) % Plt Count 192 (150-400) K/uL MPV 9.90 (7.40-12.00) fL Add Manual Diff YES Neutrophils % (Manual) 55 (48.0-80.0) % Band Neutrophils % 2 % Lymphocytes % (Manual) 27 (16.0-40.0) % Monocytes % (Manual) 16 H (0.0-15.0) % Nucleated RBC % 0.0 /100WBC Absolute Seg Neuts 2.8 (1.4-5.7) Band Neutrophils # 0.1 Lymphocytes # (Manual) 1.4 (0.6-2.4) Monocytes # (Manual) 0.8 (0.0-0.8) Nucleated RBCs # 0 K/uL INR 1.03 ABG pH (7.35-7.45) ABG pCO2 (35-45) mmHG ABG pO2 (75-100) mmHG ABG HCO3 (22-26) mEq/L ABG Total CO2 ABG Base Excess (-2.0-2.0) Lactate 0.8 (0.20-2.00) mmol/L Sodium (136-145) mmol/L Potassium (3.5-5.1) mmol/L Chloride (98-107) mmol/L Carbon Dioxide (21.0-32.0) mmol/L BUN (7.0-18.0) mg/dL Creatinine (0.6-1.0) mg/dL Est Cr Clr Drug Dosing mL/min Estimated GFR (MDRD) ml/min Glucose (74-106) mg/dL Calcium (8.5-10.1) mg/dL Total Bilirubin (0.2-1.0) mg/dL AST (15-37) IU/L ALT (14-63) IU/L Alkaline Phosphatase (46-116) U/L Creatine Kinase (26-308) U/L C-Reactive Protein (0.00-0.90) mg/dL Total Protein (6.4-8.2) g/dL Albumin (3.4-5.0) g/dL Globulin (2.6-4.0) g/dL Albumin/Globulin Ratio (0.9-1.6) Lipase (73-393) U/L Urine Color Urine Appearance Urine pH (5.0-8.0) Ur Specific [place] (1.001-1.035) Urine Protein (NEGATIVE) mg/dL Urine Glucose (UA) (NEGATIVE) mg/dL Urine Ketones (NEGATIVE) mg/dL Urine Occult Blood (NEGATIVE) Urine Nitrite (NEGATIVE) Urine Bilirubin (NEGATIVE) Urine Urobilinogen (<2.0) EU/dL Ur Leukocyte Esterase (NEGATIVE) Urine RBC (0-2/HPF) Urine WBC (0-5/HPF) Ur Epithelial Cells (NONE-FEW) Urine Bacteria (NEGATIVE) Urine HCG, Qual (NEGATIVE) Urine Opiates Screen (NEGATIVE) Ur Oxycodone Screen (NEGATIVE) Urine Methadone Screen (NEGATIVE) Ur Barbiturates Screen (NEGATIVE) Ur Phencyclidine Scrn (NEGATIVE) Ur Amphetamine Screen (NEGATIVE) U Methamphetamines Scrn (NEGATIVE) U Benzodiazepines Scrn (NEGATIVE) U Cocaine Metab Screen (NEGATIVE) U Marijuana (THC) Screen (NEGATIVE) 11/28/19 11/28/19 11/28/19 Range/Units 12:00 12:00 12:32 WBC (4.0-11.0) K/uL RBC (4.30-5.90) M/uL Hgb (12.0-16.0) g/dL Hct (36.0-46.0) % MCV (80.0-98.0) fL MCH (27.0-32.0) pg MCHC (31.0-37.0) g/dL RDW Std Deviation (28.0-62.0) fl RDW Coeff of [place] (11.0-15.0) % Plt Count (150-400) K/uL MPV (7.40-12.00) fL Add Manual Diff Neutrophils % (Manual) (48.0-80.0) % Band Neutrophils % % Lymphocytes % (Manual) (16.0-40.0) % Monocytes % (Manual) (0.0-15.0) % Nucleated RBC % /100WBC Absolute Seg Neuts (1.4-5.7) Band Neutrophils # Lymphocytes # (Manual) (0.6-2.4) Monocytes # (Manual) (0.0-0.8) Nucleated RBCs # K/uL INR ABG pH 7.404 (7.35-7.45) ABG pCO2 38 (35-45) mmHG ABG pO2 67 L (75-100) mmHG ABG HCO3 23 (22-26) mEq/L ABG Total CO2 21.2 ABG Base Excess -1.1 (-2.0-2.0) Lactate (0.20-2.00) mmol/L Sodium 140 (136-145) mmol/L Potassium 3.9 (3.5-5.1) mmol/L Chloride 104 (98-107) mmol/L Carbon Dioxide 26.2 (21.0-32.0) mmol/L BUN 7 (7.0-18.0) mg/dL Creatinine 0.6 (0.6-1.0) mg/dL Est Cr Clr Drug Dosing 128.98 mL/min Estimated GFR (MDRD) > 60.0 ml/min Glucose 100 (74-106) mg/dL Calcium 9.2 (8.5-10.1) mg/dL Total Bilirubin 0.2 (0.2-1.0) mg/dL AST 19 (15-37) IU/L ALT 22 (14-63) IU/L Alkaline Phosphatase 62 (46-116) U/L Creatine Kinase 68 (26-308) U/L C-Reactive Protein 0.70 (0.00-0.90) mg/dL Total Protein 8.3 H (6.4-8.2) g/dL Albumin 4.3 (3.4-5.0) g/dL Globulin 4.0 (2.6-4.0) g/dL Albumin/Globulin Ratio 1.1 (0.9-1.6) Lipase 95 (73-393) U/L Urine Color Urine Appearance Urine pH (5.0-8.0) Ur Specific [place] (1.001-1.035) Urine Protein (NEGATIVE) mg/dL Urine Glucose (UA) (NEGATIVE) mg/dL Urine Ketones (NEGATIVE) mg/dL Urine Occult Blood (NEGATIVE) Urine Nitrite (NEGATIVE) Urine Bilirubin (NEGATIVE) Urine Urobilinogen (<2.0) EU/dL Ur Leukocyte Esterase (NEGATIVE) Urine RBC (0-2/HPF) Urine WBC (0-5/HPF) Ur Epithelial Cells (NONE-FEW) Urine Bacteria (NEGATIVE) Urine HCG, Qual (NEGATIVE) Urine Opiates Screen (NEGATIVE) Ur Oxycodone Screen (NEGATIVE) Urine Methadone Screen (NEGATIVE) Ur Barbiturates Screen (NEGATIVE) Ur Phencyclidine Scrn (NEGATIVE) Ur Amphetamine Screen (NEGATIVE) U Methamphetamines Scrn (NEGATIVE) U Benzodiazepines Scrn (NEGATIVE) U Cocaine Metab Screen (NEGATIVE) U Marijuana (THC) Screen (NEGATIVE) 11/28/19 11/28/19 11/28/19 Range/Units 13:51 13:51 13:51 WBC (4.0-11.0) K/uL RBC (4.30-5.90) M/uL Hgb (12.0-16.0) g/dL Hct (36.0-46.0) % MCV (80.0-98.0) fL MCH (27.0-32.0) pg MCHC (31.0-37.0) g/dL RDW Std Deviation (28.0-62.0) fl RDW Coeff of Heather (11.0-15.0) % Plt Count (150-400) K/uL MPV (7.40-12.00) fL Add Manual Diff Neutrophils % (Manual) (48.0-80.0) % Band Neutrophils % % Lymphocytes % (Manual) (16.0-40.0) % Monocytes % (Manual) (0.0-15.0) % Nucleated RBC % /100WBC Absolute Seg Neuts (1.4-5.7) Band Neutrophils # Lymphocytes # (Manual) (0.6-2.4) Monocytes # (Manual) (0.0-0.8) Nucleated RBCs # K/uL INR ABG pH (7.35-7.45) ABG pCO2 (35-45) mmHG ABG pO2 (75-100) mmHG ABG HCO3 (22-26) mEq/L ABG Total CO2 ABG Base Excess (-2.0-2.0) Lactate (0.20-2.00) mmol/L Sodium (136-145) mmol/L Potassium (3.5-5.1) mmol/L Chloride (98-107) mmol/L Carbon Dioxide (21.0-32.0) mmol/L BUN (7.0-18.0) mg/dL Creatinine (0.6-1.0) mg/dL Est Cr Clr Drug Dosing mL/min Estimated GFR (MDRD) ml/min Glucose (74-106) mg/dL Calcium (8.5-10.1) mg/dL Total Bilirubin (0.2-1.0) mg/dL AST (15-37) IU/L ALT (14-63) IU/L Alkaline Phosphatase (46-116) U/L Creatine Kinase (26-308) U/L C-Reactive Protein (0.00-0.90) mg/dL Total Protein (6.4-8.2) g/dL Albumin (3.4-5.0) g/dL Globulin (2.6-4.0) g/dL Albumin/Globulin Ratio (0.9-1.6) Lipase (73-393) U/L Urine Color YELLOW Urine Appearance CLEAR Urine pH 7.0 (5.0-8.0) Ur Specific [place] 1.020 (1.001-1.035) Urine Protein NEGATIVE (NEGATIVE) mg/dL Urine Glucose (UA) NEGATIVE (NEGATIVE) mg/dL Urine Ketones NEGATIVE (NEGATIVE) mg/dL Urine Occult Blood MODERATE H (NEGATIVE) Urine Nitrite NEGATIVE (NEGATIVE) Urine Bilirubin NEGATIVE (NEGATIVE) Urine Urobilinogen 0.2 (<2.0) EU/dL Ur Leukocyte Esterase NEGATIVE (NEGATIVE) Urine RBC 6-8 (0-2/HPF) Urine WBC NONE SEEN (0-5/HPF) Ur Epithelial Cells RARE (NONE-FEW) Urine Bacteria FEW (NEGATIVE) Urine HCG, Qual NEGATIVE (NEGATIVE) Urine Opiates Screen NEGATIVE (NEGATIVE) Ur Oxycodone Screen NEGATIVE (NEGATIVE) Urine Methadone Screen NEGATIVE (NEGATIVE) Ur Barbiturates Screen NEGATIVE (NEGATIVE) Ur Phencyclidine Scrn NEGATIVE (NEGATIVE) Ur Amphetamine Screen NEGATIVE (NEGATIVE) U Methamphetamines Scrn NEGATIVE (NEGATIVE) U Benzodiazepines Scrn NEGATIVE (NEGATIVE) U Cocaine Metab Screen NEGATIVE (NEGATIVE) U Marijuana (THC) Screen NEGATIVE (NEGATIVE) Result Diagrams: 11/28/19 12:00 11/28/19 12:00 Chris Results Last 24 hrs: Microbiology 11/28/19 12:00 Influenza Type A Antigen Screen - Final Nasopharyngeal Swab NEGATIVE INFLUENZA A VIRUS AG REFERENCE RANGE: NEGATIVE Influenza Type B Antigen Screen - Final Positive Influenza B Ag Sepsis Event Note - Focused Exam Vital Signs: Vital Signs Temp Temp Pulse Resp BP Pulse Ox Pulse Ox 11/28/19 19:32 97.7 F 86 16 115/61 96 11/28/19 15:39 99.0 F 91 14 114/66 97 97 11/28/19 14:00 97 18 125/66 98 11/28/19 13:00 89 18 132/83 97 11/28/19 12:57 99.4 F 11/28/19 12:27 101 F H 11/28/19 12:02 101 F H 110 H 22 H 123/75 97 Date Exam was Performed: 11/28/19 Time Exam was Performed: 21:25 Orders Last 24hrs: Active Orders 24 hr Category Date Time Status Admission Status [Patient Status] [ADT] Stat ADT 11/28/19 14:52 Active Antiembolic Devices [RC] PER UNIT ROUTINE Care 11/28/19 15:40 Active Intake and Output [RC] QSHIFT Care 11/28/19 15:39 Active Oxygen Therapy [RC] PRN Care 11/28/19 15:39 Active RT Aerosol Therapy [RC] ASDIRECTED Care 11/28/19 15:41 Active Up With Assistance [RC] ASDIRECTED Care 11/28/19 15:39 Active VTE/DVT Education [RC] PER UNIT ROUTINE Care 11/28/19 15:39 Active Vital Signs [RC] Q4H Care 11/28/19 15:39 Active Regular Diet [DIET] Diet 11/28/19 Lunch Active BASIC METABOLIC PANEL,BMP [CHEM] AM Lab 11/29/19 05:11 Ordered CBC WITH AUTO DIFF [HEME] AM Lab 11/29/19 05:11 Ordered CULTURE BLOOD [BC] Stat Lab 11/28/19 12:00 Received CULTURE BLOOD [BC] Stat Lab 11/28/19 12:20 Received CULTURE SPUTUM + SMEAR [RM] Stat Lab 11/28/19 15:39 Ordered CULTURE URINE [RM] Stat Lab 11/28/19 13:51 Received MAGNESIUM [CHEM] AM Lab 11/29/19 05:11 Ordered STREP SCRN A RAPID W CULT CONF [RM] Urgent Lab 11/28/19 16:01 Ordered Acetaminophen [Tylenol] Med 11/28/19 15:39 Active 650 mg PO Q4H PRN Albuterol [Proventil Neb Soln] Med 11/28/19 15:39 Active 2.5 mg NEB Q2H PRN Azithromycin [Zithromax] 500 mg Med 11/28/19 16:00 Active Sodium Chloride 0.9% [Normal Saline (AdvBag)] 250 ml IV DAILY Benzocaine/Cetylpyrd/Menthol [Cepacol Sore Throat] Med 11/28/19 15:39 Active 1 lozenge MUCMEM Q2H PRN Ibuprofen [Motrin] Med 11/28/19 15:39 Active 400 mg PO Q6H PRN Morphine Med 11/28/19 15:39 Active 2 mg IVPUSH Q2H PRN Ondansetron [Zofran] Med 11/28/19 15:39 Active 4 mg IVPUSH Q4H PRN Oseltamivir [Tamiflu] Med 11/28/19 21:00 Active 75 mg PO BID Sodium Chloride 0.9% [Normal Saline] 1,000 ml Med 11/28/19 15:45 Active IV Q6H Sodium Chloride 0.9% [Saline Flush] Med 11/28/19 12:14 Active 10 ml FLUSH ASDIRECTED PRN Sodium Chloride 0.9% [Saline Flush] Med 11/28/19 12:14 Active 2.5 ml FLUSH ASDIRECTED PRN cefTRIAXone [Rocephin in Dextrose,Iso-Osm 1 GM/50 ML] 1 Med 11/29/19 12:00 Active gm Premix Bag 1 bag IV Q24H diphenhydrAMINE [Benadryl] Med 11/28/19 16:14 Active 25 mg IVPUSH Q6H PRN Blood Culture x2 Reflex Set [OM.PC] Stat Ot 11/28/19 12:14 Ordered Pulse Oximetry Continuous Monitoring [OM.PC] Routine Ot 11/28/19 16:13 Ordered Saline Lock Insert [OM.PC] Stat Ot 11/28/19 12:14 Ordered Sequential Compression Device [OM.PC] Per Unit Routine Ot 11/28/19 15:40 Ordered Severe Sepsis Onset Time [OM.PC] Stat Ot 11/28/19 12:14 Ordered Resuscitation Status Routine Resus Stat 11/28/19 15:39 Ordered Medication Orders Acetaminophen (Tylenol) 650 mg PO Q4H PRN PRN Reason: Pain (Mild 1-3)/fever Albuterol (Proventil Neb Soln) 2.5 mg NEB Q2H PRN PRN Reason: Shortness Of Breath/wheezing Benzocaine/Menthol (Cepacol Sore Throat) 1 lozenge MUCMEM Q2H PRN PRN Reason: Sore Throat Diphenhydramine HCl (Benadryl) 25 mg IVPUSH Q6H PRN PRN Reason: Itching Sodium Chloride (Normal Saline) 1,000 mls @ 150 mls/hr IV Q6H KELLY Last Admin: 11/28/19 16:27 Dose: 150 mls/hr Azithromycin 500 mg/ Sodium (Chloride) 250 mls @ 250 mls/hr IV DAILY KELLY Last Admin: 11/28/19 16:37 Dose: 250 mls/hr Ceftriaxone Sodium/Dextrose 1 (gm/ Premix) 50 mls @ 100 mls/hr IV Q24H [facility] Ibuprofen (Motrin) 400 mg PO Q6H PRN PRN Reason: Pain (mild 1-3) Morphine Sulfate (Morphine) 2 mg IVPUSH Q2H PRN PRN Reason: Pain (severe 7-10) Stop: 11/29/19 15:40 Last Admin: 11/28/19 17:03 Dose: 2 mg Ondansetron HCl (Zofran) 4 mg IVPUSH Q4H PRN PRN Reason: Nausea Last Admin: 11/28/19 17:05 Dose: 4 mg Oseltamivir Phosphate (Tamiflu) 75 mg PO BID [facility] Last Admin: 11/28/19 21:05 Dose: 75 mg Sodium Chloride (Saline Flush) 10 ml FLUSH ASDIRECTED PRN PRN Reason: Keep Vein Open Last Admin: 11/28/19 12:28 Dose: 10 ml Sodium Chloride (Saline Flush) 2.5 ml FLUSH ASDIRECTED PRN PRN Reason: Keep Vein Open Last Admin: 11/28/19 12:28 Dose: 2.5 ml
[2019-11-28] MEDS ORDERED: methylPREDNISolone Sodium Succinate 125 MG/2 ML SDV IVPUSH ONE (16:03)
[2019-11-28] MEDS ORDERED: diphenhydrAMINE 50 MG/ML SDV IVPUSH ONE (16:04)
[2019-11-28] MEDS ORDERED: diphenhydrAMINE 50 MG/ML SDV IVPUSH PRN (16:14)
[2019-11-28] MEDS: Sodium Chloride 0.9% 1,000 ML IV SCH (16:27)
[2019-11-28] MEDS: Azithromycin 500 MG in Sodium Chloride 0.9% 250 ML IV SCH (16:37)
[2019-11-28] MEDS: Oseltamivir 75 MG Cap PO SCH (21:05)
[2019-11-29] MEDS: Sodium Chloride 0.9% 1,000 ML IV SCH ×4 (00:14→21:33)
[2019-11-29 06:12] LABS: BLOOD UREA NITROGEN,BUN 9 mg/dL (7.0-18.0); CARBON DIOXIDE,CO2 25.8 mmol/L (21.0-32.0); CHLORIDE,CL 109 mmol/L (98-107); GLUCOSE RANDOM 116 mg/dL (74-106); POTASSIUM,K 4.3 mmol/L (3.5-5.1); SODIUM,NA 144 mmol/L (136-145)
[2019-11-29] MEDS: Oseltamivir 75 MG Cap PO SCH ×2 (09:18→20:28)
[2019-11-29] MEDS: Azithromycin 500 MG in Sodium Chloride 0.9% 250 ML IV SCH (09:18)
[2019-11-29] MEDS: Benzocaine/Cetylpyridinium/Menthol Lozenge MUCMEM PRN ×3 (09:18→18:25)
[2019-11-29] MEDS ORDERED: cefTRIAXone 1 GM in Premix Bag 1 BAG IV SCH (12:00)
--- NOTE | 2019-11-29 13:31 | PCM.PN ---
- General Info Date of Service: 11/29/19 Admission Dx/Problem (Free Text): Admission Diagnosis/Problem Admission Diagnosis/Problem Influenza due to Influenza A virus Subjective Update: Seen and examined at bedside, feels much better, headache resolved. Functional Status: Reports: Pain Controlled - Review of Systems General: Reports: Weakness, Fatigue, Malaise. Denies: Fever HEENT: Denies: Dysphasia, Ear Pain Pulmonary: Reports: Pleuritic Chest Pain, Cough, Sputum. Denies: Shortness of Breath Cardiovascular: Reports: Dyspnea on Exertion, Other. Denies: Chest Pain, Palpitations Gastrointestinal: Denies: Abdominal Pain, Constipation Genitourinary: Denies: Dysuria, Frequency, Burning Musculoskeletal: Denies: Neck Pain, Shoulder Pain, Arm Pain - Patient Data Vitals - Most Recent: Last Vital Signs Temp 36.6 C 11/29/19 11:54 Pulse 67 11/29/19 11:54 Resp 20 11/29/19 11:54 BP 93/54 L 11/29/19 11:54 Pulse Ox 98 11/29/19 11:54 Weight - Most Recent: 58.967 kg I&O - Last 24 Hours: Intake & Output 11/28/19 11/29/19 11/29/19 22:59 06:59 14:59 Intake Total 240 2814 Output Total 350 2600 Balance -110 214 Lab Results Last 24 Hours: Laboratory Results - last 24 hr 11/28/19 11/28/19 11/28/19 Range/Units 12:00 13:51 13:51 WBC (4.0-11.0) K/uL RBC (4.30-5.90) M/uL Hgb (12.0-16.0) g/dL Hct (36.0-46.0) % MCV (80.0-98.0) fL MCH (27.0-32.0) pg MCHC (31.0-37.0) g/dL RDW Std Deviation (28.0-62.0) fl RDW Coeff of Heather (11.0-15.0) % Plt Count (150-400) K/uL MPV (7.40-12.00) fL Neut % (Auto) (48.0-80.0) % Lymph % (Auto) (16.0-40.0) % [place] % (Auto) (0.0-15.0) % Eos % (Auto) (0.0-7.0) % Baso % (Auto) (0.0-1.5) % Neut # (Auto) (1.4-5.7) K/uL Lymph # (Auto) (0.6-2.4) K/uL [place] # (Auto) (0.0-0.8) K/uL Eos # (Auto) (0.0-0.7) K/uL Baso # (Auto) (0.0-0.1) K/uL Nucleated RBC % /100WBC Nucleated RBCs # K/uL Sodium (136-145) mmol/L Potassium (3.5-5.1) mmol/L Chloride (98-107) mmol/L Carbon Dioxide (21.0-32.0) mmol/L BUN (7.0-18.0) mg/dL Creatinine (0.6-1.0) mg/dL Est Cr Clr Drug Dosing mL/min Estimated GFR (MDRD) ml/min Glucose (74-106) mg/dL Calcium (8.5-10.1) mg/dL Magnesium (1.8-2.4) mg/dL Creatine Kinase 68 (26-308) U/L Urine Color YELLOW Urine Appearance CLEAR Urine pH 7.0 (5.0-8.0) Ur Specific [place] 1.020 (1.001-1.035) Urine Protein NEGATIVE (NEGATIVE) mg/dL Urine Glucose (UA) NEGATIVE (NEGATIVE) mg/dL Urine Ketones NEGATIVE (NEGATIVE) mg/dL Urine Occult Blood MODERATE H (NEGATIVE) Urine Nitrite NEGATIVE (NEGATIVE) Urine Bilirubin NEGATIVE (NEGATIVE) Urine Urobilinogen 0.2 (<2.0) EU/dL Ur Leukocyte Esterase NEGATIVE (NEGATIVE) Urine RBC 6-8 (0-2/HPF) Urine WBC NONE SEEN (0-5/HPF) Ur Epithelial Cells RARE (NONE-FEW) Urine Bacteria FEW (NEGATIVE) Urine HCG, Qual NEGATIVE (NEGATIVE) Urine Opiates Screen (NEGATIVE) Ur Oxycodone Screen (NEGATIVE) Urine Methadone Screen (NEGATIVE) Ur Barbiturates Screen (NEGATIVE) Ur Phencyclidine Scrn (NEGATIVE) Ur Amphetamine Screen (NEGATIVE) U Methamphetamines Scrn (NEGATIVE) U Benzodiazepines Scrn (NEGATIVE) U Cocaine Metab Screen (NEGATIVE) U Marijuana (THC) Screen (NEGATIVE) 11/28/19 11/29/19 11/29/19 Range/Units 13:51 05:45 05:45 WBC 4.58 (4.0-11.0) K/uL RBC 4.09 L (4.30-5.90) M/uL Hgb 12.3 (12.0-16.0) g/dL Hct 37.8 (36.0-46.0) % MCV 92.4 (80.0-98.0) fL MCH 30.1 (27.0-32.0) pg MCHC 32.5 (31.0-37.0) g/dL RDW Std Deviation 43.0 (28.0-62.0) fl RDW Coeff of Heather 13 (11.0-15.0) % Plt Count 193 (150-400) K/uL MPV 9.70 (7.40-12.00) fL Neut % (Auto) 64.0 (48.0-80.0) % Lymph % (Auto) 25.1 (16.0-40.0) % [place] % (Auto) 10.9 (0.0-15.0) % Eos % (Auto) 0.0 (0.0-7.0) % Baso % (Auto) 0.0 (0.0-1.5) % Neut # (Auto) 2.9 (1.4-5.7) K/uL Lymph # (Auto) 1.2 (0.6-2.4) K/uL [place] # (Auto) 0.5 (0.0-0.8) K/uL Eos # (Auto) 0.0 (0.0-0.7) K/uL Baso # (Auto) 0.0 (0.0-0.1) K/uL Nucleated RBC % 0.0 /100WBC Nucleated RBCs # 0 K/uL Sodium 144 (136-145) mmol/L Potassium 4.3 (3.5-5.1) mmol/L Chloride 109 H (98-107) mmol/L Carbon Dioxide 25.8 (21.0-32.0) mmol/L BUN 9 (7.0-18.0) mg/dL Creatinine 0.6 (0.6-1.0) mg/dL Est Cr Clr Drug Dosing 133.43 mL/min Estimated GFR (MDRD) > 60.0 ml/min Glucose 116 H (74-106) mg/dL Calcium 8.3 L (8.5-10.1) mg/dL Magnesium 2.0 (1.8-2.4) mg/dL Creatine Kinase (26-308) U/L Urine Color Urine Appearance Urine pH (5.0-8.0) Ur Specific [place] (1.001-1.035) Urine Protein (NEGATIVE) mg/dL Urine Glucose (UA) (NEGATIVE) mg/dL Urine Ketones (NEGATIVE) mg/dL Urine Occult Blood (NEGATIVE) Urine Nitrite (NEGATIVE) Urine Bilirubin (NEGATIVE) Urine Urobilinogen (<2.0) EU/dL Ur Leukocyte Esterase (NEGATIVE) Urine RBC (0-2/HPF) Urine WBC (0-5/HPF) Ur Epithelial Cells (NONE-FEW) Urine Bacteria (NEGATIVE) Urine HCG, Qual (NEGATIVE) Urine Opiates Screen NEGATIVE (NEGATIVE) Ur Oxycodone Screen NEGATIVE (NEGATIVE) Urine Methadone Screen NEGATIVE (NEGATIVE) Ur Barbiturates Screen NEGATIVE (NEGATIVE) Ur Phencyclidine Scrn NEGATIVE (NEGATIVE) Ur Amphetamine Screen NEGATIVE (NEGATIVE) U Methamphetamines Scrn NEGATIVE (NEGATIVE) U Benzodiazepines Scrn NEGATIVE (NEGATIVE) U Cocaine Metab Screen NEGATIVE (NEGATIVE) U Marijuana (THC) Screen NEGATIVE (NEGATIVE) Chris Results Last 24 Hours: Microbiology 11/28/19 12:20 Aerobic Blood Culture - Preliminary Blood - Venous - Lab Draw NO GROWTH AFTER 1 DAY Anaerobic Blood Culture - Preliminary NO GROWTH AFTER 1 DAY 11/28/19 12:00 Aerobic Blood Culture - Preliminary Blood - Venous NO GROWTH AFTER 1 DAY Anaerobic Blood Culture - Preliminary NO GROWTH AFTER 1 DAY 11/29/19 05:50 Group A Streptococcus Rapid Screen - Final Throat NEGATIVE STREP A SCREEN REFERENCE RANGE: NEGATIVE 11/28/19 12:00 Influenza Type A Antigen Screen - Final Nasopharyngeal Swab NEGATIVE INFLUENZA A VIRUS AG REFERENCE RANGE: NEGATIVE Influenza Type B Antigen Screen - Final Positive Influenza B Ag Med Orders - Current: Current Medications Acetaminophen (Tylenol) 650 mg PO Q4H PRN PRN Reason: Pain (Mild 1-3)/fever Albuterol (Proventil Neb Soln) 2.5 mg NEB Q2H PRN PRN Reason: Shortness Of Breath/wheezing Benzocaine/Menthol (Cepacol Sore Throat) 1 lozenge MUCMEM Q2H PRN PRN Reason: Sore Throat Last Admin: 11/29/19 11:35 Dose: 1 lozenge Diphenhydramine HCl (Benadryl) 25 mg IVPUSH Q6H PRN PRN Reason: Itching Sodium Chloride (Normal Saline) 1,000 mls @ 150 mls/hr IV Q6H [facility] Last Admin: 11/29/19 07:17 Dose: 150 mls/hr Azithromycin 500 mg/ Sodium (Chloride) 250 mls @ 250 mls/hr IV DAILY [facility] Last Admin: 11/29/19 09:18 Dose: 250 mls/hr Ceftriaxone Sodium/Dextrose 1 (gm/ Premix) 50 mls @ 100 mls/hr IV Q24H [facility] Last Admin: 11/29/19 11:35 Dose: 100 mls/hr Ibuprofen (Motrin) 400 mg PO Q6H PRN PRN Reason: Pain (mild 1-3) Morphine Sulfate (Morphine) 2 mg IVPUSH Q2H PRN PRN Reason: Pain (severe 7-10) Stop: 11/29/19 15:40 Last Admin: 11/28/19 17:03 Dose: 2 mg Ondansetron HCl (Zofran) 4 mg IVPUSH Q4H PRN PRN Reason: Nausea Last Admin: 11/28/19 17:05 Dose: 4 mg Oseltamivir Phosphate (Tamiflu) 75 mg PO BID [facility] Last Admin: 11/29/19 09:18 Dose: 75 mg Sodium Chloride (Saline Flush) 10 ml FLUSH ASDIRECTED PRN PRN Reason: Keep Vein Open Last Admin: 11/28/19 12:28 Dose: 10 ml Sodium Chloride (Saline Flush) 2.5 ml FLUSH ASDIRECTED PRN PRN Reason: Keep Vein Open Last Admin: 11/28/19 12:28 Dose: 2.5 ml Discontinued Medications Acetaminophen (Tylenol) 975 mg 15 mg/kg (975 mg) RECTAL NOW ONE Stop: 11/28/19 12:20 Last Admin: 11/28/19 12:27 Dose: 975 mg Ceftriaxone Sodium (Rocephin) 2 gm IVPUSH ONETIME ONE Stop: 11/28/19 13:31 Last Admin: 11/28/19 13:40 Dose: Not Given Diphenhydramine HCl (Benadryl) 25 mg IVPUSH ONETIME ONE Stop: 11/28/19 16:05 Last Admin: 11/28/19 16:28 Dose: 25 mg Sodium Chloride (Normal Saline) 1,000 mls @ 999 mls/hr IV STAT ONE Stop: 11/28/19 13:14 Last Admin: 11/28/19 12:28 Dose: 999 mls/hr Vancomycin HCl 1.5 gm/ Premix 300 mls @ 200 mls/hr IV ONETIME ONE Stop: 11/28/19 15:03 Last Admin: 11/28/19 14:10 Dose: 200 mls/hr Ceftriaxone Sodium/Dextrose 2 (gm/ Premix) 50 mls @ 100 mls/hr IV ONETIME ONE Stop: 11/28/19 14:06 Last Admin: 11/28/19 14:10 Dose: 100 mls/hr Sodium Chloride (Normal Saline) 1,000 mls @ 1,000 mls/hr IV .Bolus ONE Stop: 11/28/19 14:50 Last Admin: 11/28/19 14:10 Dose: 1,000 mls/hr Methylprednisolone Sodium Succinate (Solu-Medrol) 125 mg IVPUSH ONETIME ONE Stop: 11/28/19 16:04 Last Admin: 11/28/19 16:31 Dose: 125 mg Oseltamivir Phosphate (Tamiflu) 75 mg PO ONETIME ONE Stop: 11/28/19 13:53 Last Admin: 11/28/19 14:58 Dose: 75 mg - Exam Quality Assessment: No: Supplemental Oxygen General: Alert, Oriented, Cooperative Neck: Supple, Trachea Midline Lungs: Normal Respiratory Effort, Decreased Breath Sounds Cardiovascular: Regular Rate, Regular Rhythm GI/Abdominal Exam: Normal Bowel Sounds, Soft, Non-Tender Sepsis Event Note - Evaluation Sepsis Screening Result: No Definite Risk - Focused Exam Vital Signs: Vital Signs Temp Pulse Resp BP Pulse Ox 11/29/19 11:54 36.6 C 67 20 93/54 L 98 11/29/19 07:40 36.2 C 64 16 103/59 L 98 11/29/19 03:00 37.2 C 71 16 121/59 L 97 Date Exam was Performed: 11/29/19 Time Exam was Performed: 13:28 - Problem List & Annotations (1) CAP (community acquired pneumonia) SNOMED Code(s): 454898343 Code(s): J18.9 - PNEUMONIA, UNSPECIFIED ORGANISM Status: Acute Current Visit: Yes Qualifiers: Laterality: unspecified laterality Qualified Code(s): J18.9 - Pneumonia, unspecified organism (2) Influenza SNOMED Code(s): 0528165 Code(s): J11.1 - FLU DUE TO UNIDENTIFIED INFLUENZA VIRUS W OTH RESP MANIFEST Status: Acute Current Visit: Yes (3) History of asthma SNOMED Code(s): 205058991 Code(s): Z87.09 - PERSONAL HISTORY OF OTHER DISEASES OF THE RESPIRATORY SYSTEM Status: Chronic Current Visit: Yes - Problem List Review Problem List Initiated/Reviewed/Updated: Yes - Plan Plan:: This 24 year old female admitted with Influenza B and bibasilar pneumonia cont Tamiflu 75mg BID cont Supportive care with Tylenol, Ibuprofen, Cepacol and IVFs. Continue Rocephin( give slowly), Azithromycin, watch for allergic reaction Sputum culture, BC pending Nebs PRN dyspnea
[2019-11-30] MEDS: Diphenhydramine/Lidocaine/Nystatin Suspension 237 ML Bottle PO SCH ×2 (03:13→07:32)
[2019-11-30] MEDS: Sodium Chloride 0.9% 1,000 ML IV SCH (06:30)
[2019-11-30 06:59] LABS: BLOOD UREA NITROGEN,BUN 7 mg/dL (7.0-18.0); CARBON DIOXIDE,CO2 28.1 mmol/L (21.0-32.0); CHLORIDE,CL 111 mmol/L (98-107); GLUCOSE RANDOM 88 mg/dL (74-106); POTASSIUM,K 4.3 mmol/L (3.5-5.1); SODIUM,NA 145 mmol/L (136-145)
[2019-11-30 07:55] VITALS: BP 101/67; PULSE 65
[2019-11-30] MEDS: Oseltamivir 75 MG Cap PO SCH (09:21)
[2019-11-30] MEDS: Benzocaine/Cetylpyridinium/Menthol Lozenge MUCMEM PRN (09:21)
[2019-11-30] MEDS: Azithromycin 500 MG in Sodium Chloride 0.9% 250 ML IV SCH (09:23)
--- NOTE | 2019-11-30 10:37 | PCM.DCSUM1 ---
<Malcolm Del Real - Last Filed: 11/30/19 12:15> Discharge Summary - Hospital Course Free Text/Narrative:: 24 y/o female presenting to the ER complaining of fever, shortness of breath. Found to be Influenza positive and chest xray showing bilateral bibasilar infiltrates. Admitted for community acquired pneumonia and influenza. Started on Ceftriaxone, azithromycin and Tamiflu. Fever was controlled and she did fairly well during this hospitalization. At time of discharge she was feeling better, tolerating PO intake and breathing room air. She was discharged home on Augmentin, Azithromycin, Tamiflu and Albuterol. She will need to follow-up with her PCP in 1-2 weeks. - Discharge Data Discharge Date: 11/30/19 Discharge Disposition: Home, Self-Care 01 Condition: Fair - Referral to Home Health Primary Care Physician: PCP None - Patient Instructions Diet: Regular Diet as Tolerated, Drink 8-10+ Glasses/Day Activity: As Tolerated Notify Provider of: Fever, Increased Pain, Swelling and Redness, Nausea and/or Vomiting - Discharge Plan *PRESCRIPTION DRUG MONITORING PROGRAM REVIEWED*: Not Applicable *COPY OF PRESCRIPTION DRUG MONITORING REPORT IN PATIENT TAMAR: Not Applicable Prescriptions/Med Rec: Benzocaine/Menthol [Cepacol Sore Throat Lozenge] 1 pack PO Q4HR PRN #1 lozenge PRN Reason: Sore Throat Albuterol [Proventil HFA] 2 puff INH Q4H PRN #2 inhaler PRN Reason: Wheezing Amoxicillin/Potassium Clav [Augmentin 875-125 Tablet] 1 each PO BID 5 Days #10 tablet Azithromycin 250 mg PO DAILY 5 Days #5 tablet Oseltamivir [Tamiflu] 75 mg PO BID 5 Days #10 cap Home Medications: Home Meds Albuterol [Proventil HFA] 2 puff INH Q4H PRN #2 inhaler 11/30/19 [Rx] Amoxicillin/Potassium Clav [Augmentin 875-125 Tablet] 1 each PO BID 5 Days #10 tablet 11/30/19 [Rx] Azithromycin 250 mg PO DAILY 5 Days #5 tablet 11/30/19 [Rx] Benzocaine/Menthol [Cepacol Sore Throat Lozenge] 1 pack PO Q4HR PRN #1 lozenge 11/30/19 [Rx] Oseltamivir [Tamiflu] 75 mg PO BID 5 Days #10 cap 11/30/19 [Rx] Patient Handouts: Amoxicillin; Clavulanic Acid tablets, Pharyngitis, Oseltamivir capsules, Benzocaine Oral Lozenges, Albuterol inhalation solution, Community-Acquired Pneumonia, Adult, [id number] Referrals: Malcolm Del Real MD [Resident] - (Call the clinic on Sunday to make a hospital follow-up. This was not done for you, due to it being the weekend. ) - Discharge Summary/Plan Comment DC Time >30 min.: No - Patient Data Vitals - Most Recent: Last Vital Signs Temp 36.8 C 11/30/19 07:55 Pulse 65 11/30/19 07:55 Resp 15 11/30/19 07:55 BP 101/67 11/30/19 07:55 Pulse Ox 97 11/30/19 07:55 Weight - Most Recent: 58.967 kg I&O - Last 24 hours: Intake & Output 11/29/19 11/30/19 11/30/19 22:59 06:59 14:59 Intake Total 2212 1972 Output Total 1000 880 Balance 1212 1092 Lab Results - Last 24 hrs: Laboratory Results - last 24 hr 11/30/19 11/30/19 Range/Units 06:30 06:30 WBC 4.75 (4.0-11.0) K/uL RBC 3.77 L (4.30-5.90) M/uL Hgb 11.3 L (12.0-16.0) g/dL Hct 35.2 L (36.0-46.0) % MCV 93.4 (80.0-98.0) fL MCH 30.0 (27.0-32.0) pg MCHC 32.1 (31.0-37.0) g/dL RDW Std Deviation 44.5 (28.0-62.0) fl RDW Coeff of Heather 13 (11.0-15.0) % Plt Count 173 (150-400) K/uL MPV 9.80 (7.40-12.00) fL Neut % (Auto) 30.4 L (48.0-80.0) % Lymph % (Auto) 58.9 H (16.0-40.0) % [place] % (Auto) 10.3 (0.0-15.0) % Eos % (Auto) 0.4 (0.0-7.0) % Baso % (Auto) 0.0 (0.0-1.5) % Neut # (Auto) 1.4 (1.4-5.7) K/uL Lymph # (Auto) 2.8 H (0.6-2.4) K/uL [place] # (Auto) 0.5 (0.0-0.8) K/uL Eos # (Auto) 0.0 (0.0-0.7) K/uL Baso # (Auto) 0.0 (0.0-0.1) K/uL Nucleated RBC % 0.0 /100WBC Nucleated RBCs # 0 K/uL Sodium 145 (136-145) mmol/L Potassium 4.3 (3.5-5.1) mmol/L Chloride 111 H (98-107) mmol/L Carbon Dioxide 28.1 (21.0-32.0) mmol/L BUN 7 (7.0-18.0) mg/dL Creatinine 0.7 (0.6-1.0) mg/dL Est Cr Clr Drug Dosing 114.36 mL/min Estimated GFR (MDRD) > 60.0 ml/min Glucose 88 (74-106) mg/dL Calcium 7.6 L (8.5-10.1) mg/dL Phosphorus 3.1 (2.6-4.7) mg/dL Magnesium 1.8 (1.8-2.4) mg/dL MADY Results - Last 24 hrs: Microbiology 11/29/19 05:50 Quick Strep Confirmation Culture - Final Throat NO GROUP A STREP ISOLATED REFERENCE RANGE: NEGATIVE Group A Streptococcus Rapid Screen - Final NEGATIVE STREP A SCREEN REFERENCE RANGE: NEGATIVE 11/28/19 13:51 Urine Culture - Final Urine, Clean Catch MIXED BENJI 10,000-100,000 CFU/ML 11/28/19 12:20 Aerobic Blood Culture - Preliminary Blood - Venous - Lab Draw NO GROWTH AFTER 1 DAY Anaerobic Blood Culture - Preliminary NO GROWTH AFTER 1 DAY 11/28/19 12:00 Aerobic Blood Culture - Preliminary Blood - Venous NO GROWTH AFTER 1 DAY Anaerobic Blood Culture - Preliminary NO GROWTH AFTER 1 DAY Med Orders - Current: Current Medications Acetaminophen (Tylenol) 650 mg PO Q4H PRN PRN Reason: Pain (Mild 1-3)/fever Albuterol (Proventil Neb Soln) 2.5 mg NEB Q2H PRN PRN Reason: Shortness Of Breath/wheezing Benzocaine/Menthol (Cepacol Sore Throat) 1 lozenge MUCMEM Q2H PRN PRN Reason: Sore Throat Last Admin: 11/30/19 09:21 Dose: 1 lozenge Diphenhydramine HCl (Benadryl) 25 mg IVPUSH Q6H PRN PRN Reason: Itching Diphenhydramine/Nystatin/Lidocaine (Magic Mouthwash) 1 ml PO QID [facility] Last Admin: 11/30/19 07:32 Dose: 1 ml Sodium Chloride (Normal Saline) 1,000 mls @ 150 mls/hr IV Q6H [facility] Last Admin: 11/30/19 06:30 Dose: 150 mls/hr Azithromycin 500 mg/ Sodium (Chloride) 250 mls @ 250 mls/hr IV DAILY [facility] Last Admin: 11/30/19 09:23 Dose: 250 mls/hr Ceftriaxone Sodium/Dextrose 1 (gm/ Premix) 50 mls @ 100 mls/hr IV Q24H [facility] Last Admin: 11/29/19 11:35 Dose: 100 mls/hr Ibuprofen (Motrin) 400 mg PO Q6H PRN PRN Reason: Pain (mild 1-3) Last Admin: 11/29/19 18:25 Dose: 400 mg Ondansetron HCl (Zofran) 4 mg IVPUSH Q4H PRN PRN Reason: Nausea Last Admin: 11/28/19 17:05 Dose: 4 mg Oseltamivir Phosphate (Tamiflu) 75 mg PO BID [facility] Last Admin: 11/30/19 09:21 Dose: 75 mg Sodium Chloride (Saline Flush) 10 ml FLUSH ASDIRECTED PRN PRN Reason: Keep Vein Open Last Admin: 11/28/19 12:28 Dose: 10 ml Sodium Chloride (Saline Flush) 2.5 ml FLUSH ASDIRECTED PRN PRN Reason: Keep Vein Open Last Admin: 11/28/19 12:28 Dose: 2.5 ml Discontinued Medications Acetaminophen (Tylenol) 975 mg 15 mg/kg (975 mg) RECTAL NOW ONE Stop: 11/28/19 12:20 Last Admin: 02/14/20 12:27 Dose: 975 mg Ceftriaxone Sodium (Rocephin) 2 gm IVPUSH ONETIME ONE Stop: 11/28/19 13:31 Last Admin: 11/28/19 13:40 Dose: Not Given Diphenhydramine HCl (Benadryl) 25 mg IVPUSH ONETIME ONE Stop: 11/28/19 16:05 Last Admin: 11/28/19 16:28 Dose: 25 mg Sodium Chloride (Normal Saline) 1,000 mls @ 999 mls/hr IV STAT ONE Stop: 11/28/19 13:14 Last Admin: 11/28/19 12:28 Dose: 999 mls/hr Vancomycin HCl 1.5 gm/ Premix 300 mls @ 200 mls/hr IV ONETIME ONE Stop: 11/28/19 15:03 Last Admin: 11/28/19 14:10 Dose: 200 mls/hr Ceftriaxone Sodium/Dextrose 2 (gm/ Premix) 50 mls @ 100 mls/hr IV ONETIME ONE Stop: 11/28/19 14:06 Last Admin: 11/28/19 14:10 Dose: 100 mls/hr Sodium Chloride (Normal Saline) 1,000 mls @ 1,000 mls/hr IV .Bolus ONE Stop: 11/28/19 14:50 Last Admin: 11/28/19 14:10 Dose: 1,000 mls/hr Methylprednisolone Sodium Succinate (Solu-Medrol) 125 mg IVPUSH ONETIME ONE Stop: 11/28/19 16:04 Last Admin: 11/28/19 16:31 Dose: 125 mg Morphine Sulfate (Morphine) 2 mg IVPUSH Q2H PRN PRN Reason: Pain (severe 7-10) Stop: 11/29/19 15:40 Last Admin: 11/28/19 17:03 Dose: 2 mg Oseltamivir Phosphate (Tamiflu) 75 mg PO ONETIME ONE Stop: 11/28/19 13:53 Last Admin: 11/28/19 14:58 Dose: 75 mg <Santi Rudolph - Last Filed: 12/04/19 10:13> Discharge Summary - Referral to Home Health Primary Care Physician: PCP None - Patient Data Vitals - Most Recent: Last Vital Signs Temp 36.8 C 11/30/19 07:55 Pulse 65 11/30/19 07:55 Resp 15 11/30/19 07:55 BP 101/67 11/30/19 07:55 Pulse Ox 97 11/30/19 07:55 MADY Results - Last 24 hrs: Microbiology 11/28/19 12:20 Aerobic Blood Culture - Final Blood - Venous - Lab Draw NO GROWTH AFTER 5 DAYS Anaerobic Blood Culture - Final NO GROWTH AFTER 5 DAYS 11/28/19 12:00 Aerobic Blood Culture - Final Blood - Venous NO GROWTH AFTER 5 DAYS Anaerobic Blood Culture - Final NO GROWTH AFTER 5 DAYS Med Orders - Current: Current Medications Discontinued Medications Acetaminophen (Tylenol) 975 mg 15 mg/kg (975 mg) RECTAL NOW ONE Stop: 11/28/19 12:20 Last Admin: 11/28/19 12:27 Dose: 975 mg Acetaminophen (Tylenol) 650 mg PO Q4H PRN PRN Reason: Pain (Mild 1-3)/fever Albuterol (Proventil Neb Soln) 2.5 mg NEB Q2H PRN PRN Reason: Shortness Of Breath/wheezing Benzocaine/Menthol (Cepacol Sore Throat) 1 lozenge MUCMEM Q2H PRN PRN Reason: Sore Throat Last Admin: 11/30/19 09:21 Dose: 1 lozenge Ceftriaxone Sodium (Rocephin) 2 gm IVPUSH ONETIME ONE Stop: 11/28/19 13:31 Last Admin: 11/28/19 13:40 Dose: Not Given Diphenhydramine HCl (Benadryl) 25 mg IVPUSH ONETIME ONE Stop: 11/28/19 16:05 Last Admin: 11/28/19 16:28 Dose: 25 mg Diphenhydramine HCl (Benadryl) 25 mg IVPUSH Q6H PRN PRN Reason: Itching Diphenhydramine/Nystatin/Lidocaine (Magic Mouthwash) 1 ml PO QID [facility] Last Admin: 11/30/19 07:32 Dose: 1 ml Diphenhydramine/Nystatin/Lidocaine (Magic Mouthwash) 15 ml PO QID [facility] Sodium Chloride (Normal Saline) 1,000 mls @ 999 mls/hr IV STAT ONE Stop: 11/28/19 13:14 Last Admin: 11/28/19 12:28 Dose: 999 mls/hr Vancomycin HCl 1.5 gm/ Premix 300 mls @ 200 mls/hr IV ONETIME ONE Stop: 11/28/19 15:03 Last Admin: 11/28/19 14:10 Dose: 200 mls/hr Ceftriaxone Sodium/Dextrose 2 (gm/ Premix) 50 mls @ 100 mls/hr IV ONETIME ONE Stop: 11/28/19 14:06 Last Admin: 11/28/19 14:10 Dose: 100 mls/hr Sodium Chloride (Normal Saline) 1,000 mls @ 1,000 mls/hr IV .Bolus ONE Stop: 11/28/19 14:50 Last Admin: 11/28/19 14:10 Dose: 1,000 mls/hr Sodium Chloride (Normal Saline) 1,000 mls @ 150 mls/hr IV Q6H [facility] Last Admin: 11/30/19 06:30 Dose: 150 mls/hr Azithromycin 500 mg/ Sodium (Chloride) 250 mls @ 250 mls/hr IV DAILY [facility] Last Admin: 11/30/19 09:23 Dose: 250 mls/hr Ceftriaxone Sodium/Dextrose 1 (gm/ Premix) 50 mls @ 100 mls/hr IV Q24H [facility] Last Admin: 11/29/19 11:35 Dose: 100 mls/hr Ibuprofen (Motrin) 400 mg PO Q6H PRN PRN Reason: Pain (mild 1-3) Last Admin: 11/29/19 18:25 Dose: 400 mg Methylprednisolone Sodium Succinate (Solu-Medrol) 125 mg IVPUSH ONETIME ONE Stop: 11/28/19 16:04 Last Admin: 11/28/19 16:31 Dose: 125 mg Morphine Sulfate (Morphine) 2 mg IVPUSH Q2H PRN PRN Reason: Pain (severe 7-10) Stop: 11/29/19 15:40 Last Admin: 11/28/19 17:03 Dose: 2 mg Ondansetron HCl (Zofran) 4 mg IVPUSH Q4H PRN PRN Reason: Nausea Last Admin: 11/28/19 17:05 Dose: 4 mg Oseltamivir Phosphate (Tamiflu) 75 mg PO ONETIME ONE Stop: 11/28/19 13:53 Last Admin: 11/28/19 14:58 Dose: 75 mg Oseltamivir Phosphate (Tamiflu) 75 mg PO BID [facility] Last Admin: 11/30/19 09:21 Dose: 75 mg Sodium Chloride (Saline Flush) 10 ml FLUSH ASDIRECTED PRN PRN Reason: Keep Vein Open Last Admin: 11/28/19 12:28 Dose: 10 ml Sodium Chloride (Saline Flush) 2.5 ml FLUSH ASDIRECTED PRN PRN Reason: Keep Vein Open Last Admin: 11/28/19 12:28 Dose: 2.5 ml - Free Text/Narrative Note: I have seen and evaluated the patient with the resident. I have discussed the findings and treatment plan with the resident. I agree with the assessment and plan as outlined in the following note.
[2019-11-30] MEDS ORDERED: Diphenhydramine/Lidocaine/Nystatin Suspension 237 ML Bottle PO SCH (12:03)
== END 2019-11-30 12:15 | disposition home or self-care (01) | DRG 195 ==
LOC: MW.ED 11:58 → MW.MS 14:43 → OBSVTOIN 14:52 → MW.MS 14:56
PROVIDERS: ADMIT Student in an Organized Health Care Education/Training Program; ATTEND Student in an Organized Health Care Education/Training Program
DX: J10.00 Influenza due to other identified influenza virus with unspecified type of pneumonia (principal); J45.909 Unspecified asthma, uncomplicated; Z79.51 Long term (current) use of inhaled steroids; Z79.2 Long term (current) use of antibiotics; Z79.899 Other long term (current) drug therapy
CPT/HCPCS: 36415; 36600; 70450; 70450-26; 71045; 71045-26; 80048; 80053; 80305-QW; 81001; 81025; 82550; 82803; 83605; 83690; 83735; 84100; 85025; 85610; 86140; 87040; 87081; 87086; 87804; 87880-QW; 93005; 99285; 99285-25; A9270-GY; J0456; J0696; J1200; J2270; J2405; J2930; J3370; J7030; J7050

== ENCOUNTER 2025-07-29 09:06 | Emergency (ER) | payer BC ==
[2025-07-29 09:36] LABS: BASOPHILS ABSOLUTE AUTO 0.02 K/uL (0.00-0.20); BASOPHILS PERCENT AUTO 0.2 % (0.0-1.0); EOSINOPHILS ABSOLUTE AUTO 0.07 K/uL (0.00-0.45); EOSINOPHILS PERCENT AUTO 0.8 % (0.0-6.0); IMMATURE GRAN ABSOLUTE AUTO 0.01 K/uL (0.00-0.05); IMMATURE GRAN PERCENT AUTO 0.1 % (0.0-0.4); LYMPHOCYTES ABSOLUTE AUTO 2.38 K/uL (1.00-4.80); LYMPHOCYTES PERCENT AUTO 26.0 % (24.0-44.0); MEAN PLATELET VOLUME 9.4 fL (9.4-12.3); MONOCYTES ABSOLUTE AUTO 0.51 K/uL (0.00-0.80); MONOCYTES PERCENT AUTO 5.6 % (0.0-8.0); NEUTROPHILS ABSOLUTE AUTO 6.16 K/uL (1.80-7.70); NEUTROPHILS PERCENT AUTO 67.3 % (41.0-71.0); NRBC ABSOLUTE 0.00 K/uL (0.00-0.02); NRBC PERCENT 0.0 /100WBC (0.0-0.2); PLATELET COUNT,PLT 263 K/uL (150-400); RED BLOOD CELL COUNT 4.50 M/uL (4.10-5.30); WHITE BLOOD CELL COUNT,WBC 9.15 K/uL (3.9-11.3)
[2025-07-29 09:55] LABS: GLUCOSE,URINE NEGATIVE (NEGATIVE); OCCULT BLOOD,URINE LARGE (NEGATIVE)
[2025-07-29 09:57] LABS: APPEARANCE,URINE HAZY
[2025-07-29 10:03] LABS: SQUAMOUS EPITHELIAL CELLS,UR FEW
[2025-07-29 10:04] LABS: A/G RATIO 1.1 (0.9-1.6); ALANINE AMINOTRANSFERASE,ALT 24.0 IU/L (14-63); ASPARTATE AMNIOTRANSFERASE,AST 19.0 IU/L (15-37); BILIRUBIN TOTAL 0.7 mg/dL (0.2-1.0); BLOOD UREA NITROGEN,BUN 11.0 mg/dL (7.0-18.0); CARBON DIOXIDE,CO2 24.3 mmol/L (21.0-32.0); CHLORIDE,CL 104.0 mmol/L (98-107); CREATININE 0.6 mg/dL (0.6-1.0); EST CRCL DRUG DOSING (CG) 123.37 mL/min; GLUCOSE RANDOM 87.0 mg/dL (74-106); POTASSIUM,K 3.8 mmol/L (3.5-5.1); PROTEIN TOTAL,TP 8.0 g/dL (6.4-8.2); SODIUM,NA 139.0 mmol/L (136-145)
[2025-07-29 10:40] LABS: ESTIMATED GFR 124.0 mL/min (>60)
[2025-07-29] MEDS ORDERED: Naloxone 0.4 MG/ML SDV IVPUSH PRN (12:09)
[2025-07-29] MEDS: Iopamidol 755 MG/ML 500 ML Multipack Bottle IVPUSH STA (12:33)
[2025-07-29] MEDS: Ondansetron 4 MG/2 ML SDV IVPUSH ONE (12:35)
[2025-07-29 15:10] VITALS: BP 115/65; PULSE 76
== END 2025-07-29 14:59 | disposition home or self-care (01) ==
LOC: MW.ED 09:06
DX: N83.201 Unspecified ovarian cyst, right side (principal); Z79.899 Other long term (current) drug therapy; Z91.030 Bee allergy status
CPT/HCPCS: 36415; 71260; 74177; 76830; 80053; 81001; 81025; 83690; 84484; 84703; 85025; 93005; 96374; 96375; 99284; J2270; J2405; Q9967; 99283